=== PATIENT | male | born 1960 | race Caucasian/White ===

== ENCOUNTER 2019-10-17 19:56 | Emergency (ER) | payer MEDICARE, OTHER, SELFPAY ==
[2019-10-17] VITALS (9 sets, daily range): BP systolic 140–165; BP diastolic 96–129; PULSE 94–133; RESP 18–33; TEMP 36.6–39.1; O2SAT 93–98; BMI 31.1
--- NOTE | 2019-10-17 20:15 | XRR_ITS ---
PROCEDURE INFORMATION: Exam: XR Chest, 1 View Exam date and time: 10/17/2019 8:27 PM Age: 59 years old Clinical indication: Dyspnea; Additional info: SOB TECHNIQUE: Imaging protocol: XR of the chest Views: 1 view. COMPARISON: CR Chest 1 [place] [id number] 06/09/2018 3:06 PM FINDINGS: Lungs: Airspace opacity in the perihilar and basilar left lung. The right lung is clear. Pleural space: Unremarkable. No pleural effusion. No pneumothorax. Heart/Mediastinum: Unremarkable. No cardiomegaly. Bones/joints: Sternotomy changes with multiple fractured wires. XR/XR chest 1V portable [id number] IMPRESSION: Pneumonia versus aspiration in the left lung.
--- NOTE | 2019-10-17 20:16 | ECG_ITS ---
[facility] Test Date: 2019-10-17 Pat Name: Mehdi Goodwin Department: Room: Gender: Male Coldfusion: : 1960 Requested By: Tom Hill Order Number: [id number] Elle MD: Fe Barry M.D. Measurements Intervals [place] Rate: 125 P: 77 AK: 140 QRS: 32 QRSD: 114 T: 48 QT: 314 QTc: 453 Interpretive Statements SINUS TACHYCARDIA INCOMPLETE RIGHT BUNDLE BRANCH BLOCK INFERIOR MYOCARDIAL INFARCTION , OF INDETERMINATE AGE Compared to ECG 06/09/2018 17:37:46 Sinus rhythm no longer present Myocardial infarct finding still present Electronically Signed On 10-17-2019 20:26:04 CDT by Fe Barry M.D. [id number]
--- NOTE | 2019-10-17 20:20 | ED_ITS ---
HPI - SOB/Dyspnea General: Chief Complaint: Shortness of Breath/Dyspnea Stated Complaint: SOB Time Seen by Provider: 10/17/19 20:04 History of Present Illness: HPI Narrative: 59-year-old male gentleman who was evaluated yesterday at [facility]. He was tested for COVID, and was negative there. He has been experiencing symptoms for 6 days. He has had fever, cough, shortness of breath, and left-sided chest/flank pain. He states his urine is a dark color as well. He is not been vomiting. MD elicited complaint: shortness of breath, cough and chest pain Pertinent past history: COPD Onset (ago): day(s) Context: recent illness Timing: constant Severity: moderate Exacerbating factors: exertion Relieving factors: oxygen Associated symptoms: Reports chest pain, dizziness and fever(s); Deny abdominal pain, nausea, palpitations or vomiting Review of Systems Const: Reports: fever(s) and chills Eyes: Denies: change in vision ENMT: Denies: swelling of lips/tongue, epistaxis or sinus pain Card: Reports: chest pain; Denies: palpitations, irregular heart rhythm or edema Resp: Reports: dyspnea, non-productive cough and wheezing; Denies: productive cough GI: Denies: abdominal pain, nausea or vomiting : Denies: difficulty urinating or hematuria Musc: Denies: back pain or joint warmth Skin/Breast: Denies: rash, pruritus or erythema Neuro: Reports: dizziness; Denies: headache(s), vertigo or confusion Psych: Denies: anxiety PFSH ED PFSH: Medical History (Updated 10/17/19 @ 22:37 by Tom Hurtado DO) COPD (chronic obstructive pulmonary disease) Coronary artery disease Hyperlipidemia Hypertension Surgical History (Updated 10/17/19 @ 21:17 by Mina Benavidez MD) 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 Family History (Updated 10/17/19 @ 21:17 by Mina Benavidez MD) Other CAD (coronary artery disease) Social History (Updated 10/17/19 @ 21:18 by Mina Benavidez MD) Smoking and tobacco status: current every day smoker cigarettes [ Other cigarette details: 1 pack/day ] Alcohol intake: never Lives independently: Yes Housing: House Physical Exam Const: GENERAL APPEARANCE: well developed, in distress and ill appearing ORIENTATION/CONSCIOUSNESS: Yes oriented to person, Yes oriented to place and Yes oriented to time HENMT: COMMON NORMALS: normocephalic, external ears normal and Normal external nose present HEAD & SCALP: normocephalic FACE & SINUS: normal facial exam NOSE: Normal external nose present and No nasal discharge present EXTERNAL EAR: Yes external ears normal Eye: COMMON NORMALS: Equal, round and reactive pupils present, EOMs intact bilaterally and conjunctivae normal EYELID: eyelids normal CONJUNCTIVA: Yes conjunctivae normal PUPIL: Yes Equal, round and reactive pupils present Neck/C-Spine: GENERAL: No tracheal deviation Chest: COMMONS NORMALS: normal inspection of the chest CHEST: No tenderness Resp: EFFORT & INSPECTION: Yes tachypneic, Yes respiratory distress, No retractions, Yes uses accessory muscles and No tracheal deviation AUSCULTATION: no rhonchi, no wheezes and diminished lung sounds Cardio: COMMON NORMALS: regular rhythm RATE: tachycardic RHYTHM: regular rhythm HEART SOUNDS: no murmurs PERIPHERAL PULSES: radial pulses present GI: INSPECTION: No abdominal distension AUSCULTATION: No Hyperactive bowel sounds present and No Hypoactive bowel sounds present PALPATION: No Guarding due to palpation present (GI) and No Rigid due to palpation PERCUSSION: no dullness to percussion and no tympanic to percussion Neuro: SENSORIUM/ORIENTATION: Yes oriented to person, Yes oriented to place and Yes oriented to time Psych: COMMON NORMALS: mental status grossly normal Skin: COMMON NORMALS: no rashes or lesions noted GENERAL SKIN EXAM: no rashes or lesions noted Course Vital Signs: Vital signs: Vital Signs Temperature 97.8 F 10/17/19 23:14 Pulse Rate 97 10/17/19 23:14 Respiratory Rate 19 H 10/17/19 23:14 Blood Pressure 155/106 10/17/19 23:14 Pulse Oximetry 94 10/17/19 23:14 MDM - SOB/Dyspnea MDM Narrative: Medical decision making narrative: 59-year-old male presenting with cough and shortness of breath along with some pleuritic type left-sided chest pain/flank pain. His white blood cell count is 28.4. His hemoglobin is 13. BUN slightly elevated. Chest x-ray shows a left-sided infiltrate that is significant. He was given IV fluid, 2 L, as well as 750 mg of Levaquin here in the ER. He was placed on BiPAP on arrival, with dramatic improvement in his respiratory status. Currently he is back on 3 L nasal cannula satting 93%. His heart rate is 100. His blood pressure is 140/100. We had contacted the hospitalist, and written admission orders on this patient, pending a rapid COVID antigen. He had one yesterday that was negative. When discussing admission with the patient, he states that he needs to leave and be discharged, because he is taking care of his grandchildren at home. 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 The risks of him leaving at this point given the acuity and severity of his illness were discussed with him, including a distinct possibility of . He chooses to leave AGAINST MEDICAL ADVICE. He is awake, alert, oriented x4, and capable of making his decision. Nevertheless he will be treated for pneumonia. Lab Data: Labs: Lab Results 10/17/19 10/17/19 10/17/19 Range/Units 20:29 20:29 20:29 WBC 28.4 H (4.0-10.0) 10^3/ uL RBC 4.36 (4.1-5.3) 10^6/u L Hgb 13.4 (11.7-16.6) g/dL Hct 41.8 L (42.0-52.0) % MCV 95.9 H (80-94) fL MCH 30.7 (28.0-34.0) pg MCHC 32.1 (30.0-36.0) g/dL RDW 14.0 (12.1-15.1) % Plt Count 383 (130-400) 10^3/c mm MPV 10.9 H (7.4-10.4) fL Lymph % (Auto) Not Reportable [place] % (Auto) Not Reportable Lymph # (Auto) Not Reportable [place] # (Auto) Not Reportable Total Counted 100 (0-100) Absolute Neutrophi ls 26.7 H (1.4-6.5) 10^3/c mm Segmented Neutroph ils 54 % Abs Segm Neuts (Ma n) 15.3 H (1.6-7.1) 10/cmm Band Neutrophils 40.0 % Abs Band Neuts (Ma n) 11.4 H (0.0-1.2) 10^3/c mm Lymphocytes (Manua l) 1 % Monocytes (Manual) 4.0 % Absolute Monocytes 1.1 H (0.1-0.6) 10^3/c mm Metamyelocytes 1.0 % Platelet Estimate Increased (Normal) Polychromasia 1+ H Poikilocytosis 1+ H D-Dimer 2.11 H (0-0.59) ug/mIFE U Specimen Type Sample Site ABG pH (7.35-7.45) ABG pCO2 (35-45) mmHg ABG pO2 (80.0-100.0) mmH g ABG HCO3 (22-26) mmol/L ABG Base Excess (-2.0-2.0) mmol/ L Emanuel Test Hematocrit (42-52) % Hgb O2 Saturation (95-100) % Carboxyhemoglobin (0.4-20.1) %THgb Methemoglobin (0.4-1.5) % Total Hemoglobin (14-18) g/dL O2 Delivery Device FiO2 % Grooving Machine Operator ID Sodium 130 L (136-145) mmol/L Potassium 4.7 (3.5-5.1) mmol/L Chloride 90 L (98-107) mmol/L Carbon Dioxide 25 (22-29) mmol/L Anion Gap 19.7 H (5-19) BUN 24 H (6-20) mg/dL Creatinine 1.1 (0.7-1.2) mg/dL GFR Calculation 69.0 L (90-130) mL/min Glucose 109 (65-115) mg/dL Calculated Osmolal ity 267 L (285-295) mOsm/k g Lactic Acid (0.5-2.2) mmol/L Calcium 9.4 (8.5-10.5) mg/dL Total Bilirubin 0.5 (0.15-1.2) mg/dL AST 22 (0-40) U/L ALT 33 (0-41) U/L Alkaline Phosphata se 92 (40-130) IU/L Troponin T Baselin e (0-15) ng/L Troponin T 120 Min hughes (0-15) ng/L Delta Troponin T (0-10) ABS# NT-Pro-B Natriuret Pep 558 H (0-125) pg/mL Total Protein 6.4 L (6.6-8.7) g/dL Albumin 3.4 L (3.5-5.2) g/dL Globulin 3.0 (1.3-4.6) g/dL SARS-CoV-2 Ag (Rap id) (Negative) 10/17/19 10/17/19 10/17/19 Range/Units 20:29 20:30 20:53 WBC (4.0-10.0) 10^3/ uL RBC (4.1-5.3) 10^6/u L Hgb (11.7-16.6) g/dL Hct (42.0-52.0) % MCV (80-94) fL MCH (28.0-34.0) pg MCHC (30.0-36.0) g/dL RDW (12.1-15.1) % Plt Count (130-400) 10^3/c mm MPV (7.4-10.4) fL Lymph % (Auto) [place] % (Auto) Lymph # (Auto) [place] # (Auto) Total Counted (0-100) Absolute Neutrophi ls (1.4-6.5) 10^3/c mm Segmented Neutroph ils % Abs Segm Neuts (Ma n) (1.6-7.1) 10/cmm Band Neutrophils % Abs Band Neuts (Ma n) (0.0-1.2) 10^3/c mm Lymphocytes (Manua l) % Monocytes (Manual) % Absolute Monocytes (0.1-0.6) 10^3/c mm Metamyelocytes % Platelet Estimate (Normal) Polychromasia Poikilocytosis D-Dimer (0-0.59) ug/mIFE U Specimen Type Arterial Sample Site Brachial, right ABG pH 7.47 H (7.35-7.45) ABG pCO2 30.7 L (35-45) mmHg ABG pO2 128.0 H (80.0-100.0) mmH g ABG HCO3 22.4 (22-26) mmol/L ABG Base Excess -0.3 (-2.0-2.0) mmol/ L Emanuel Test N/a Hematocrit 42.4 (42-52) % Hgb O2 Saturation 97.4 (95-100) % Carboxyhemoglobin < 0.0 L (0.4-20.1) %THgb Methemoglobin 0.3 L (0.4-1.5) % Total Hemoglobin 13.8 L (14-18) g/dL O2 Delivery Device Bipap FiO2 55.0 % Grooving Machine Operator ID Harkr Sodium (136-145) mmol/L Potassium (3.5-5.1) mmol/L Chloride (98-107) mmol/L Carbon Dioxide (22-29) mmol/L Anion Gap (5-19) BUN (6-20) mg/dL Creatinine (0.7-1.2) mg/dL GFR Calculation (90-130) mL/min Glucose (65-115) mg/dL Calculated Osmolal ity (285-295) mOsm/k g Lactic Acid 1.8 (0.5-2.2) mmol/L Calcium (8.5-10.5) mg/dL Total Bilirubin (0.15-1.2) mg/dL AST (0-40) U/L ALT (0-41) U/L Alkaline Phosphata se (40-130) IU/L Troponin T Baselin e 16 H (0-15) ng/L Troponin T 120 Min hughes (0-15) ng/L Delta Troponin T (0-10) ABS# NT-Pro-B Natriuret Pep (0-125) pg/mL Total Protein (6.6-8.7) g/dL Albumin (3.5-5.2) g/dL Globulin (1.3-4.6) g/dL SARS-CoV-2 Ag (Rap id) (Negative) 10/17/19 10/17/19 Range/Units 22:02 22:33 WBC (4.0-10.0) 10^3/ uL RBC (4.1-5.3) 10^6/u L Hgb (11.7-16.6) g/dL Hct (42.0-52.0) % MCV (80-94) fL MCH (28.0-34.0) pg MCHC (30.0-36.0) g/dL RDW (12.1-15.1) % Plt Count (130-400) 10^3/c mm MPV (7.4-10.4) fL Lymph % (Auto) [place] % (Auto) Lymph # (Auto) [place] # (Auto) Total Counted (0-100) Absolute Neutrophi ls (1.4-6.5) 10^3/c mm Segmented Neutroph ils % Abs Segm Neuts (Ma n) (1.6-7.1) 10/cmm Band Neutrophils % Abs Band Neuts (Ma n) (0.0-1.2) 10^3/c mm Lymphocytes (Manua l) % Monocytes (Manual) % Absolute Monocytes (0.1-0.6) 10^3/c mm Metamyelocytes % Platelet Estimate (Normal) Polychromasia Poikilocytosis D-Dimer (0-0.59) ug/mIFE U Specimen Type Sample Site ABG pH (7.35-7.45) ABG pCO2 (35-45) mmHg ABG pO2 (80.0-100.0) mmH g ABG HCO3 (22-26) mmol/L ABG Base Excess (-2.0-2.0) mmol/ L Emanuel Test Hematocrit (42-52) % Hgb O2 Saturation (95-100) % Carboxyhemoglobin (0.4-20.1) %THgb Methemoglobin (0.4-1.5) % Total Hemoglobin (14-18) g/dL O2 Delivery Device FiO2 % Grooving Machine Operator ID Sodium (136-145) mmol/L Potassium (3.5-5.1) mmol/L Chloride (98-107) mmol/L Carbon Dioxide (22-29) mmol/L Anion Gap (5-19) BUN (6-20) mg/dL Creatinine (0.7-1.2) mg/dL GFR Calculation (90-130) mL/min Glucose (65-115) mg/dL Calculated Osmolal ity (285-295) mOsm/k g Lactic Acid (0.5-2.2) mmol/L Calcium (8.5-10.5) mg/dL Total Bilirubin (0.15-1.2) mg/dL AST (0-40) U/L ALT (0-41) U/L Alkaline Phosphata se (40-130) IU/L Troponin T Baselin e (0-15) ng/L Troponin T 120 Min [place]hes 18.38 H (0-15) ng/L Delta Troponin T 2.38 (0-10) ABS# NT-Pro-B Natriuret Pep (0-125) pg/mL Total Protein (6.6-8.7) g/dL Albumin (3.5-5.2) g/dL Globulin (1.3-4.6) g/dL SARS-CoV-2 Ag (Rap id) Negative (Negative) Discharge Plan Discharge Patient Disposition: Left Against Medical Advice Clinical Impression: Community acquired pneumonia Qualifiers: Laterality: left Lung location: upper lobe of lung Qualified Code(s): J18.9 - Pneumonia, unspecified organism Condition: Stable Prescriptions: New Levaquin 750 mg tablet 750 mg PO DAILY 7 Days Qty: 7 RF: 0 No Action albuterol sulfate 2.5 mg /3 mL (0.083 %) solution for nebulization 2.5 mg inhalation Q6H PRN (Reason: UNKNOWN) RF: 0 clopidogrel 75 mg tablet 75 mg PO DAILY RF: 0 Aspir-81 81 mg Tablet,Delayed Release (Dr/Ec) 81 mg PO DAILY RF: 0 amlodipine 10 mg tablet 10 mg PO DAILY RF: 0 prednisone 50 mg tablet 50 mg PO BID RF: 0 albuterol sulfate 90 mcg/actuation HFA aerosol inhaler 1 - 2 puff INHALATION Q4H PRN (Reason: Shortness Of Breath) RF: 0 losartan 100 mg tablet 100 mg PO DAILY RF: 0 duloxetine 60 mg capsule,delayed release(DR/EC) 60 mg PO DAILY RF: 0 Trelegy Ellipta 100-62.5-25 mcg blister with device 1 ea INHALATION DAILY RF: 0 Referrals: Hung Carmichael MD [Primary Care Provider] - Discharge Diet: Advance as tolerated Discharge Activity: Limit activity as instructed Patient Instructions: Pneumonia (ED) Activity Restrictions/Additional Instructions: Return immediately to the emergency department for any worsening shortness of breath, or other concerning symptoms. Antibiotics as directed. Discharge Date/Time: 10/17/19 23:24 Coding Level of Care Code ED Business Continuity Management Director for Lauren Fwd Exam Comprehensive
[2019-10-17] MEDS: fentaNYL 50 mcg/mL INJ 2mL 100 MCG IVP (20:36)
[2019-10-17 20:37] LABS: Hematocrit 41.8 % (42.0-52.0); Hemoglobin 13.4 g/dL (11.7-16.6); Mean Corpuscular HGB Conc 32.1 g/dL (30.0-36.0); Mean Corpuscular Hemoglobin 30.7 pg (28.0-34.0); Mean Corpuscular Volume 95.9 fL (80-94); Mean Platelet Volume 10.9 fL (7.4-10.4); Platelet Count 383 10^3/cmm (130-400); Red Blood Count 4.36 10^6/uL (4.1-5.3); White Blood Count 28.4 10^3/uL (4.0-10.0)
[2019-10-17] MEDS: dexamethasone 10 mg/mL INJ IVP (20:41)
[2019-10-17] MEDS: metoprolol tartrate 1 mg/1 mL SDV 5 mL 5 MG IV (20:42)
[2019-10-17 20:52] LABS: ABG PCO2 30.7 mmHg (35-45); ABG PH Result 7.47 (7.35-7.45); Arterial Blood Gas Hematocrit 42.4 % (42-52); Base Excess ABG -0.3 mmol/L (-2.0-2.0); Blood Gas Operator Identificat HARKR; Blood Gas Sample Site Brachial, right; Blood Gas Sample Type Arterial; Carboxyhemoglobin < 0.0 %THgb (0.4-20.1); HCO3 ABG 22.4 mmol/L (22-26); HGB O2 Sat 97.4 % (95-100); Methemoglobin 0.3 % (0.4-1.5); Oxygen Device BIPAP; Total Hemoglobin 13.8 g/dL (14-18)
[2019-10-17 20:52] LABS: D Dimer 2.11 ug/mIFEU (0-0.59)
[2019-10-17 20:59] LABS: Troponin(5th) Baseline 16 ng/L (0-15)
--- NOTE | 2019-10-17 21:01 | PC.NURSE ---
Patient sitting up with legs on either side of bed. Patient is on the Bipap and states he feels a little better.
[2019-10-17 21:06] LABS: Alanine Aminotransferase 33 U/L (0-41); Albumin Level 3.4 g/dL (3.5-5.2); Alkaline Phosphatase 92 IU/L (40-130); Anion Gap 19.7 (5-19); Aspartate Amino Transferase 22 U/L (0-40); Blood Urea Nitrogen 24 mg/dL (6-20); Calcium 9.4 mg/dL (8.5-10.5); Carbon Dioxide 25 mmol/L (22-29); Chloride 90 mmol/L (98-107); Glucose 109 mg/dL (65-115); NT Pro B Type Natriuretic Pept 558 pg/mL (0-125); Osmolality Calculated 267 mOsm/kg (285-295); Potassium 4.7 mmol/L (3.5-5.1); Sodium 130 mmol/L (136-145); Total Bilirubin 0.5 mg/dL (0.15-1.2); Total Protein 6.4 g/dL (6.6-8.7)
[2019-10-17] MEDS: levofloxacin-dextrose 5 % 750 MG/150 ML PREMIX 100 MG IV (21:07)
--- NOTE | 2019-10-17 21:16 | PM.HP ---
Providers/Chief Complaint Primary Care Provider: Hung Carmichael MD Chief Complaint: SOB History of Present Illness Mehdi Goodwin is a 59 year old male Medications/Allergies Home Medications Medication Instructions Recorded Confirmed Last Taken Type albuterol sulfate 1 - 2 puff INHALATION Q4H PRN 10/17/19 10/17/19 Unknown History albuterol sulfate 2.5 mg INHALATION Q6H PRN 10/17/19 10/17/19 10/17/19 History amlodipine 10 mg PO DAILY 10/17/19 10/17/19 10/16/19 History aspirin [Aspir-81] 81 mg PO DAILY 10/17/19 10/17/19 10/17/19 History clopidogrel 75 mg PO DAILY 10/17/19 10/17/19 10/17/19 History duloxetine 60 mg PO DAILY 10/17/19 10/17/19 10/16/19 History ntcxntomcys-nptxvkdla-batxtrdz 1 ea INHALATION DAILY 10/17/19 10/17/19 10/17/19 History [Trelegy Ellipta] losartan 100 mg PO DAILY 10/17/19 10/17/19 10/17/19 History prednisone 50 mg PO BID 10/17/19 10/17/19 10/17/19 08:00 History Allergies Allergy/AdvReac Type Severity Reaction Status Date / Time Penicillins Allergy ALGY-Anaphy Verified 10/17/19 20:33 laxis PFSH Acute PFSH: Medical History (Updated 10/17/19 @ 21:17 by Mina Benavidez MD) COPD (chronic obstructive pulmonary disease) Coronary artery disease Hyperlipidemia Hypertension Surgical History (Updated 10/17/19 @ 21:17 by Mina Benavidez MD) 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 Family History (Updated 10/17/19 @ 21:17 by Mina Benavidez MD) Other CAD (coronary artery disease) Social History (Updated 10/17/19 @ 21:18 by Mina Benavidez MD) Smoking and tobacco status: current every day smoker cigarettes [ Other cigarette details: 1 pack/day ] Alcohol intake: never Substance/Drug Use: never Lives independently: Yes Housing: House Vitals/I&O/Wt Last Vital Signs Temp 102.4 F H 08/28/20 19:59 Pulse 102 H 10/17/19 20:51 Resp 32 H 10/17/19 20:51 BP 142/109 10/17/19 20:51 Pulse Ox 97 10/17/19 20:51 Weight last 48 hrs Weight 104.326 kg Data : 10/17/19 20:29 10/17/19 20:29 Coding Level of Care Code Acute Conductor Pullman for Lauren Jaramillo
[2019-10-17 21:22] LABS: Lactic Sepsis W/Reflex 1.8 mmol/L (0.5-2.2)
[2019-10-17 22:12] LABS: Slide Review Slide Review Perform
--- NOTE | 2019-10-17 22:16 | ECG_ITS ---
[facility] Test Date: 2019-10-17 Pat Name: Mehdi Goodwin Department: Room: Gender: Male Packaging Operator: : 1960 Requested By: Tom Hill Order Number: [id number] Elle MD: Kelli Gregorio M.D. Measurements Intervals [place] Rate: 96 P: 39 CO: 135 QRS: 17 QRSD: 118 T: 50 QT: 371 QTc: 470 Interpretive Statements SINUS RHYTHM WITH OCCASIONAL SUPRAVENTRICULAR PREMATURE COMPLEXES INCOMPLETE RIGHT BUNDLE BRANCH BLOCK [90+ ms QRS DURATION, TERMINAL R IN V1/V2, 40+ ms S IN I/aVL/V4/V5/V6] INFERIOR MYOCARDIAL INFARCTION , PROBABLY OLD [40+ ms Q WAVE AND/OR ST/T ABNORMALITY IN II/aVF] ANTEROLATERAL MYOCARDIAL INFARCTION , OF INDETERMINATE AGE [40+ ms Q WAVE IN I/aVL/V3-V6] Compared to ECG 10/17/2019 20:23:26 Sinus tachycardia no longer present Myocardial infarct finding still present Electronically Signed On 10-18-2019 20:56:42 CDT by Kelli Gregorio M.D. [id number]
[2019-10-17 22:17] LABS: Absolute Segmented Neutrophil 15.3 10/cmm (1.6-7.1); Band Neutrophils Absolute 11.4 10^3/cmm (0.0-1.2); Lymphocytes 1 %; Monocytes Absolute 1.1 10^3/cmm (0.1-0.6); Segmented Neutrophils 54 %; Total Cells Counted 100 (0-100)
[2019-10-17 22:18] LABS: Absolute Neutrophil 26.7 10^3/cmm (1.4-6.5); Platelet Estimate Increased (Normal); Poikilocytosis 1+; Polychromasia 1+
--- NOTE | 2019-10-17 22:53 | PC.NURSE ---
Patient given the rest of the liter of fluids from EMS.
[2019-10-17 23:09] LABS: SARS Covid-2 Antigen Negative (Negative)
[2019-10-17 23:37] LABS: Troponin 5 2HR 18.38 ng/L (0-15); Troponin 5 2HR Delta 2.38 ABS# (0-10)
== END 2019-10-17 23:24 | disposition left against medical advice (07) ==
PROVIDERS: Emergency Provider Emergency Medicine; PCP Family Medicine
DX: J18.9 Pneumonia, unspecified organism (principal); Z53.21 Procedure and treatment not carried out due to patient leaving prior to being seen by health care provider; Z79.02 Long term (current) use of antithrombotics/antiplatelets; Z79.82 Long term (current) use of aspirin; J44.9 Chronic obstructive pulmonary disease, unspecified; I25.10 Atherosclerotic heart disease of native coronary artery without angina pectoris; E78.5 Hyperlipidemia, unspecified; I10 Essential (primary) hypertension; Z95.1 Presence of aortocoronary bypass graft; F17.210 Nicotine dependence, cigarettes, uncomplicated
CPT/HCPCS: 12345; 36600; 71045; 80053; 82805; 83605; 83880; 84484; 85007; 85025; 85378; 87426; 93005; 94660; 96365; 96375; 99283; 99284; J1100; J1956; J3010; J3490

== ENCOUNTER 2019-10-21 11:19 | Inpatient (IN) | payer MEDICARE, SELFPAY ==
[2019-10-21] VITALS (9 sets, daily range): BP systolic 133–153; BP diastolic 86–101; PULSE 84–100; RESP 18–22; TEMP 36.5–37.2; O2SAT 93–98; BMI 31.3
--- NOTE | 2019-10-21 11:41 | ECG_ITS ---
[facility] Test Date: 2019-10-21 Pat Name: Mehdi Goodwin Department: Room: Gender: Male Poker Supervisor: : 1960 Requested By: Nivia Vicente Order Number: [id number] Almeida MD: Fe Barry M.D. Measurements Intervals [place] Rate: 109 P: 72 DE: 157 QRS: 25 QRSD: 120 T: 50 QT: 351 QTc: 473 Interpretive Statements SINUS TACHYCARDIA WITH OCCASIONAL SUPRAVENTRICULAR PREMATURE COMPLEXES POSSIBLE LEFT ATRIAL ENLARGEMENT POSSIBLE RIGHT VENTRICULAR CONDUCTION DELAY INFERIOR MYOCARDIAL INFARCTION , PROBABLY OLD Compared to ECG 10/17/2019 22:42:31 Sinus rhythm no longer present Incomplete right bundle-branch block no longer present Myocardial infarct finding still present Electronically Signed On 10-21-2019 20:41:50 CDT by Fe Barry M.D. [id number]
--- NOTE | 2019-10-21 11:41 | XRR_ITS ---
PROCEDURE INFORMATION: Exam: XR Chest, 1 View Exam date and time: 10/21/2019 11:51 AM Age: 59 years old Clinical indication: Dyspnea; Prior surgery; Surgery type: Open heart TECHNIQUE: Imaging protocol: XR of the chest Views: 1 view. COMPARISON: CR XR chest 1V portable [id number] 10/17/2019 8:18 PM FINDINGS: Lungs: Emphysematous change, interstitial prominence, chronic granulomatous disease. Asymmetric left-sided airspace disease, consistent with infiltrate in the appropriate clinical setting. Pleural space: Small left pleural effusion. Heart/Mediastinum: Epicardial fat without cardiomegaly. Bones/joints: Median sternotomy. Degenerative change. XR/XR chest 1V portable [id number] IMPRESSION: 1. Emphysematous change, interstitial prominence, chronic granulomatous disease. 2. Asymmetric left-sided airspace disease, consistent with infiltrate in the appropriate clinical setting.
--- NOTE | 2019-10-21 11:53 | ED_ITS ---
HPI - SOB/Dyspnea General: Chief Complaint: Shortness of Breath/Dyspnea Stated Complaint: SOB-sent by PCP Time Seen by Provider: 10/21/19 11:33 Source: patient Mode of arrival: ambulatory Limitations: no limitations History of Present Illness: HPI Narrative: Mehdi is a nice 59-year-old male who comes in with a complaint of shortness of breath and generalized weakness. Patient states he was sent here by his primary care physician after recheck. Of note the patient was here in the hospital in the ER, seen by Dr. Hurtado and at that time Dr. Hurtado wanted to admit him for pneumonia hypoxia but the patient could not secondary to family obligations. Since going home his symptoms have become worse and after being rechecked in Dr. Carmichael office he was sent here for admission, steroids and oxygen. Patient states he is taking the Levaquin that was prescribed him but his symptoms are no better with continued shortness of breath now he has nausea but has not vomited. He denies any chest pain but does have shortness of breath. He is unaware if he has had any fevers. He denies any leg pain or swelling. He becomes profoundly more short of breath if he exerts himself. Associated symptoms: Reports chest congestion, diaphoresis and fever(s); Deny abdominal pain, dizziness, extremity pain, hemoptysis, lightheadedness, nausea, orthopnea, palpitations, syncope or vomiting Review of Systems Const: Reports: fever(s), chills, body aches, fatigue, malaise and diaphoresis Eyes: Denies: change in vision, blurry vision, photophobia, eye discomfort, eye discharge or eye redness ENMT: Denies: throat pain, odynophagia, hoarseness, swelling of lips/tongue, ear or mastoid pain, ear discharge, change in hearing or nasal discharge Card: Denies: palpitations, irregular heart rhythm, edema, lightheadedness, syncope, pre-syncope, dyspnea on exertion or orthopnea Resp: Reports: dyspnea, non-productive cough, wheezing, pain on inspiration and chest congestion; Denies: productive cough or hemoptysis GI: Denies: abdominal pain, nausea, vomiting, hematemesis, coffee ground emesis, heartburn, diarrhea, constipation, GI cramping, hematochezia or melena : Denies: flank pain, dysuria, urinary frequency, urinary urgency or hematuria Musc: Denies: neck pain, back pain, extremity pain, extremity swelling, joint pain, joint swelling, joint redness, joint warmth or joint stiffness Skin/Breast: Denies: rash, pruritus, erythema or skin tenderness Neuro: Denies: headache(s), numbness in extremities, weakness in extremities, sensory changes, lack of coordination, difficulty walking, dizziness, vertigo, confusion, Slurred speech present or seizure-like activity Lloyd/Lymph: Denies: easy bruising, easy bleeding, petechiae, purpura or enlarged lymph nodes All/Imm: Denies: urticaria, throat swelling, tongue swelling, facial swelling or acute wheezing PFSH ED PFSH: Medical History COPD (chronic obstructive pulmonary disease) Coronary artery disease Hyperlipidemia Hypertension Surgical History 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 Family History Other CAD (coronary artery disease) Social History Smoking and tobacco status: current every day smoker cigarettes [ Other cigarette details: 1 pack/day ] Alcohol intake: never Substance/Drug Use: never Lives independently: Yes Housing: House Physical Exam Const: COMMON NORMALS: no acute distress, patient oriented x3, no limitations, healthy appearing and well nourished GENERAL APPEARANCE: cooperative, well kempt and well developed HENMT: COMMON NORMALS: normocephalic, atraumatic, external ears normal, EAC's normal and Normal external nose present HEAD & SCALP: normal to inspection, normocephalic and atraumatic FACE & SINUS: normal facial exam and face symmetric NOSE: Normal external nose present and Normal nares present EXTERNAL EAR: Yes external ears normal EXTERNAL AUDITORY CANAL: EAC's normal MOUTH: Normal oral and palatal mucosa present, lip normal and tongue normal Eye: COMMON NORMALS: Equal, round and reactive pupils present and conjunctivae normal GENERAL EYE: appearance normal, both eyes and all related structures ALIGNMENT: Yes alignment normal PERIORBITAL: periorbital findings normal EYELID: eyelids normal CONJUNCTIVA: Yes conjunctivae normal SCLERA: sclerae normal PUPIL: Yes Equal, round and reactive pupils present Neck/C-Spine: COMMON NORMALS: full ROM, no lymphadenopathy, supple, no meningeal signs and no JVD GENERAL: Yes normal visual inspection and Yes trachea midline Chest: COMMONS NORMALS: normal inspection of the chest and normal palpation of entire chest wall Resp: COMMON NORMALS: normal respiratory effort, No retractions, No use of accessory muscles and clear to auscultation bilaterally EFFORT & INSPECTION: Yes able to speak in complete sentences and Yes symmetric chest movement AUSCULTATION: clear to auscultation bilaterally, no crackles, no rales, rhonchi, wheezes and diminished lung sounds on the left in the lower lung spain Cardio: COMMON NORMALS: no JVD, regular rate, regular rhythm, S1 normal heart sound present and S2 normal heart sound present RATE: regular rate RHYTHM: regular rhythm HEART SOUNDS: S1 normal heart sound present, S2 normal heart sound present, no click, no gallops, no murmurs, no rubs and abnormal split S2 GI: COMMON NORMALS: Soft to palpation and No hepatosplenomegaly present PALPATION: Yes Soft to palpation, No Tenderness to palpation present (GI), No Guarding due to palpation present (GI), No Rigid due to palpation, Yes No hepatosplenomegaly present, No Hernia present, No Palpable mass present and No Pulsatile mass present : COMMON NORMALS: Yes no CVA tenderness BLADDER/KIDNEY EXAM: Yes no CVA tenderness Back/Pelvis: COMMON NORMALS: no CVA tenderness, thoracic and lumbar spine normal to inspection, no thoracic nor lumbar tenderness and thoraco-lumbar ROM normal Extremity: COMMON NORMALS: normal to inspection, full ROM, capillary refill normal, no joint enlargement, no clubbing, cyanosis or edema and no calf tenderness Neuro: COMMON NORMALS: patient oriented x3, CN's II-XII intact bilaterally, moves all extremities, no focal motor deficits and no sensory deficits noted MENINGEAL SIGNS: Yes no meningeal signs SPEECH: speech normal Psych: COMMON NORMALS: mental status grossly normal, Normal thought process present, cooperative, normal affect, speech normal and activity/motor behavior normal APPEARANCE: Yes well kempt SPEECH: Yes normal speech THOUGHT PROCESS: Normal thought process present Skin: COMMON NORMALS: no rashes or lesions noted, turgor normal, no jaundice, no petechiae and no mottling GENERAL SKIN EXAM: no rashes or lesions noted and turgor normal Course Vital Signs: Vital signs: Vital Signs Temperature 98.0 F 10/21/19 11:25 Pulse Rate 88 10/21/19 14:28 Respiratory Rate 20 H 10/21/19 14:28 Blood Pressure 133/86 10/21/19 11:25 Pulse Oximetry 98 10/21/19 14:28 MDM - SOB/Dyspnea MDM Narrative: Medical decision making narrative: Mr. Goodwin is a very nice 59-year-old male who comes in with 10 days or more of increasing shortness of breath, subjective fevers and chills. Please see Dr. Hurtado's note for previous but the patient left AGAINST MEDICAL ADVICE. Patient now comes back understanding he does need to be in the hospital. He states that he is feeling better after therapies we have given him here. CT scan shows no PE but is suspicious for wedge-shaped infarct in his right lung base. Nonetheless we will go ahead and treat the patient for pneumonia. The case was reviewed in full with Dr. Valdezui she agrees to admit for further evaluation and care. Lab Data: Labs: Lab Results 10/21/19 10/21/19 10/21/19 Range/Units 11:45 11:45 11:45 WBC 30.6 H* (4.0-10.0) 10^3/ uL RBC 4.29 (4.1-5.3) 10^6/u L Hgb 13.2 (11.7-16.6) g/dL Hct 41.8 L (42.0-52.0) % MCV 97.4 H (80-94) fL MCH 30.8 (28.0-34.0) pg MCHC 31.6 (30.0-36.0) g/dL RDW 14.5 (12.1-15.1) % Plt Count 827 H (130-400) 10^3/c mm MPV 9.5 (7.4-10.4) fL Lymph % (Auto) Not Reportable [place] % (Auto) Not Reportable Lymph # (Auto) Not Reportable [place] # (Auto) Not Reportable Total Counted 100 (0-100) Segmented Neutroph ils 87 % Abs Segm Neuts (Ma n) 26.6 H (1.6-7.1) 10/cmm Lymphocytes (Manua l) 6 % Monocytes (Manual) 4.0 % Absolute Monocytes 1.2 H (0.1-0.6) 10^3/c mm Eosinophils (Manua l) 1 % Absolute Eosinophi ls 0.3 (0.0-0.7) 10^3/c mm Metamyelocytes 2.0 % Platelet Estimate Increased (Normal) Anisocytosis 1+ H PT 14.80 (12.1-14.9) SECO NDS INR 1.12 (0.8-1.2) D-Dimer 2.84 H (0-0.59) ug/mIFE U Specimen Type Sample Site ABG pH (7.35-7.45) ABG pCO2 (35-45) mmHg ABG pO2 (80.0-100.0) mmH g ABG HCO3 (22-26) mmol/L ABG O2 Saturation ABG Base Excess (-2.0-2.0) mmol/ L Emanuel Test A-a O2 Gradient (5-10) mmHg Hematocrit (42-52) % Hgb O2 Saturation (95-100) % Carboxyhemoglobin (0.4-20.1) %THgb Methemoglobin (0.4-1.5) % Total Hemoglobin (14-18) g/dL Ionized Calcium (1.1-1.4) mmol/L O2 Delivery Device FiO2 % Security Compliance Specialist ID Sodium 134 L (136-145) mmol/L Potassium 4.1 (3.5-5.1) mmol/L Chloride 100 (98-107) mmol/L Carbon Dioxide 24 (22-29) mmol/L Anion Gap 14.1 (5-19) BUN 22 H (6-20) mg/dL Creatinine 1.1 (0.7-1.2) mg/dL GFR Calculation 69.0 L (90-130) mL/min Glucose 127 H (65-115) mg/dL Calculated Osmolal ity 276 L (285-295) mOsm/k g Lactic Acid (0.5-2.2) mmol/L Calcium 9.3 (8.5-10.5) mg/dL Magnesium 2.2 (1.7-2.3) mg/dL Total Bilirubin 0.4 (0.15-1.2) mg/dL AST 12 (0-40) U/L ALT 15 (0-41) U/L Alkaline Phosphata se 90 (40-130) IU/L Troponin T Baselin e (0-15) ng/L Troponin T 120 Min ione (0-15) ng/L Delta Troponin T (0-10) ABS# NT-Pro-B Natriuret Pep 288 H (0-125) pg/mL Total Protein 7.2 (6.6-8.7) g/dL Albumin 3.0 L (3.5-5.2) g/dL Globulin 4.2 (1.3-4.6) g/dL SARS-CoV-2 Ag (Rap id) (Negative) 10/21/19 10/21/19 10/21/19 Range/Units 11:45 11:45 12:00 WBC (4.0-10.0) 10^3/ uL RBC (4.1-5.3) 10^6/u L Hgb (11.7-16.6) g/dL Hct (42.0-52.0) % MCV (80-94) fL MCH (28.0-34.0) pg MCHC (30.0-36.0) g/dL RDW (12.1-15.1) % Plt Count (130-400) 10^3/c mm MPV (7.4-10.4) fL Lymph % (Auto) [place] % (Auto) Lymph # (Auto) [place] # (Auto) Total Counted (0-100) Segmented Neutroph ils % Abs Segm Neuts (Ma n) (1.6-7.1) 10/cmm Lymphocytes (Manua l) % Monocytes (Manual) % Absolute Monocytes (0.1-0.6) 10^3/c mm Eosinophils (Manua l) % Absolute Eosinophi ls (0.0-0.7) 10^3/c mm Metamyelocytes % Platelet Estimate (Normal) Anisocytosis PT (12.1-14.9) SECO NDS INR (0.8-1.2) D-Dimer (0-0.59) ug/mIFE U Specimen Type Arterial Sample Site Radial, left ABG pH 7.46 H (7.35-7.45) ABG pCO2 34.2 L (35-45) mmHg ABG pO2 57.2 L (80.0-100.0) mmH g ABG HCO3 24.2 (22-26) mmol/L ABG O2 Saturation 89.6 ABG Base Excess 0.8 (-2.0-2.0) mmol/ L Emanuel Test Pos A-a O2 Gradient 6.4 (5-10) mmHg Hematocrit 41.4 L (42-52) % Hgb O2 Saturation 88.7 L (95-100) % Carboxyhemoglobin 0.5 (0.4-20.1) %THgb Methemoglobin 0.5 (0.4-1.5) % Total Hemoglobin 13.5 L (14-18) g/dL Ionized Calcium 1.2 (1.1-1.4) mmol/L O2 Delivery Device None FiO2 21.0 % Security Compliance Specialist ID Ed Sodium 136.0 (136-145) mmol/L Potassium 4.1 (3.5-5.1) mmol/L Chloride (98-107) mmol/L Carbon Dioxide (22-29) mmol/L Anion Gap (5-19) BUN (6-20) mg/dL Creatinine (0.7-1.2) mg/dL GFR Calculation (90-130) mL/min Glucose 104.0 (65-115) mg/dL Calculated Osmolal ity (285-295) mOsm/k g Lactic Acid 2.5 H (0.5-2.2) mmol/L Calcium (8.5-10.5) mg/dL Magnesium (1.7-2.3) mg/dL Total Bilirubin (0.15-1.2) mg/dL AST (0-40) U/L ALT (0-41) U/L Alkaline Phosphata se (40-130) IU/L Troponin T Baselin e 12 (0-15) ng/L Troponin T 120 Min ione (0-15) ng/L Delta Troponin T (0-10) ABS# NT-Pro-B Natriuret Pep (0-125) pg/mL Total Protein (6.6-8.7) g/dL Albumin (3.5-5.2) g/dL Globulin (1.3-4.6) g/dL SARS-CoV-2 Ag (Rap id) (Negative) 10/21/19 10/21/19 Range/Units 12:50 13:55 WBC (4.0-10.0) 10^3/ uL RBC (4.1-5.3) 10^6/u L Hgb (11.7-16.6) g/dL Hct (42.0-52.0) % MCV (80-94) fL MCH (28.0-34.0) pg MCHC (30.0-36.0) g/dL RDW (12.1-15.1) % Plt Count (130-400) 10^3/c mm MPV (7.4-10.4) fL Lymph % (Auto) [place] % (Auto) Lymph # (Auto) [place] # (Auto) Total Counted (0-100) Segmented Neutroph ils % Abs Segm Neuts (Ma n) (1.6-7.1) 10/cmm Lymphocytes (Manua l) % Monocytes (Manual) % Absolute Monocytes (0.1-0.6) 10^3/c mm Eosinophils (Manua l) % Absolute Eosinophi ls (0.0-0.7) 10^3/c mm Metamyelocytes % Platelet Estimate (Normal) Anisocytosis PT (12.1-14.9) SECO NDS INR (0.8-1.2) D-Dimer (0-0.59) ug/mIFE U Specimen Type Sample Site ABG pH (7.35-7.45) ABG pCO2 (35-45) mmHg ABG pO2 (80.0-100.0) mmH g ABG HCO3 (22-26) mmol/L ABG O2 Saturation ABG Base Excess (-2.0-2.0) mmol/ L Emanuel Test A-a O2 Gradient (5-10) mmHg Hematocrit (42-52) % Hgb O2 Saturation (95-100) % Carboxyhemoglobin (0.4-20.1) %THgb Methemoglobin (0.4-1.5) % Total Hemoglobin (14-18) g/dL Ionized Calcium (1.1-1.4) mmol/L O2 Delivery Device FiO2 % Security Compliance Specialist ID Sodium (136-145) mmol/L Potassium (3.5-5.1) mmol/L Chloride (98-107) mmol/L Carbon Dioxide (22-29) mmol/L Anion Gap (5-19) BUN (6-20) mg/dL Creatinine (0.7-1.2) mg/dL GFR Calculation (90-130) mL/min Glucose (65-115) mg/dL Calculated Osmolal ity (285-295) mOsm/k g Lactic Acid (0.5-2.2) mmol/L Calcium (8.5-10.5) mg/dL Magnesium (1.7-2.3) mg/dL Total Bilirubin (0.15-1.2) mg/dL AST (0-40) U/L ALT (0-41) U/L Alkaline Phosphata se (40-130) IU/L Troponin T Baselin e (0-15) ng/L Troponin T 120 Min ione 11.30 (0-15) ng/L Delta Troponin T -0.70 L (0-10) ABS# NT-Pro-B Natriuret Pep (0-125) pg/mL Total Protein (6.6-8.7) g/dL Albumin (3.5-5.2) g/dL Globulin (1.3-4.6) g/dL SARS-CoV-2 Ag (Rap id) Negative (Negative) Imaging Data^: CXR: Attestation: I personally reviewed and interpreted this imaging study as follows: My impression: Worsening left lower lobe infiltrate. CT Chest: Radiologist's impression: [place] [address] CT Scan Report Signed Patient: Mehdi Goodwin Unit #: [id number] : 1960 Age/Sex: 59 / M ADM Date: 10/21/19 Loc: ER Room/Bed: Attending Dr: Ordering Provider/Ordering MD: Nivia Emmanuel DO Date of Service: 10/21/19 Procedure(s): CT angio chest PE protcl [id number] Accession Number(s): [id number] Report Number: [id number] WS: [id number] CT CHEST ANGIOGRAPHY WITH REFORMATS HISTORY: Dyspnea, chest pain, positive d-dimer TECHNIQUE: Contiguous axial images are obtained through the chest during arterial injection of intravenous contrast. Images are reconstructed to evaluate the pulmonary a rteries. MIP imaging also reviewed. All CT scans at [facility] use at least one of these dose optimization techniques: automated exposure control; mA and/or kV adjustment per patient size (includes targeted exams where dose is matched to clinical indication); or iterative reconstruction. CONTRAST: Omnipaque 350; 95 mL IV. DLP: 576.74 mGy.cm COMPARISON: Chest radiograph 10/21/2019. Good opacification of the pulmonary arteries. Normal size pulmonary artery. No filling defects are noted within the pulmonary arteries. Normal-sized thoracic aorta. Mild enlargement of the LEFT heart chambers. No pericardial or pleural effusion. Dense opacification with consolidation involving nearly 50% LEFT lower lobe. There is additional mild airspace disease which is slightly wedge-shaped at the RIGHT lung base. There is extensive consolidation surrounding the LEFT hilum. Probably combination of atelectasis, lymphadenopathy and inflammatory lung disease. Largest lymph node measures 1.6 cm. Subcarinal node measuring 1.0 cm. Smaller paratracheal lymph nodes. Benign RIGHT lower lobe granuloma. Small amount of atelectasis or airspace disease along the superior RIGHT major fissure. No abnormality upper abdomen. Prior median sternotomy. Subxiphoid hernia contains fat only. CT/CT angio chest PE protcl [id number] IMPRESSION: 1. No pulmonary embolism is identified. 2. Dense consolidation LEFT lower lobe most likely pneumonia. 3. LEFT hilar lymphadenopathy and inflammatory changes contiguous with the LEFT lower lobe pneumonia. Probably reactive. Lymphadenopathy will need to be reevaluated by CT after treatment. Recommend follow-up chest CT with contrast after treatment for pneumonia. 4. Slightly wedge-shaped area of consolidation at the RIGHT lung base. Configuration is concerning for pneumonia or pulmonary infarct from embolic disease. No embolic disease was identified. Dictated By: Elyse Ellison DO Signed By: Elyse Ellison DO Signed Date/Time: 10/21/19 1312 DD/ 1303 EKG Data^: EKG 1: Attestation: I personally reviewed and interpreted this EKG as follows: EKG Interpretation Date: 10/21/19 EKG interpretation time: 11:37 Interpretation: Sinus tachycardia at 109 beats a minute, PACs present, right bundle branch block, normal intervals, nonspecific ST and T wave changes. Discharge Plan Discharge Patient Disposition: Admitted As Inpatient Clinical Impression: Pneumonia, Hypoxia Condition: Stable Prescriptions: No Action albuterol sulfate 2.5 mg /3 mL (0.083 %) solution for nebulization 2.5 mg inhalation Q6H PRN (Reason: UNKNOWN) RF: 0 clopidogrel 75 mg tablet 75 mg PO DAILY RF: 0 aspirin [Aspir-81] 81 mg Tablet,Delayed Release (Dr/Ec) 81 mg PO DAILY RF: 0 amlodipine 10 mg tablet 10 mg PO DAILY RF: 0 albuterol sulfate 90 mcg/actuation HFA aerosol inhaler 1 - 2 puff INHALATION Q4H PRN (Reason: Shortness Of Breath) RF: 0 losartan 100 mg tablet 100 mg PO DAILY RF: 0 duloxetine 60 mg capsule,delayed release(DR/EC) 60 mg PO DAILY RF: 0 Trelegy Ellipta 100-62.5-25 mcg blister with device 1 ea INHALATION DAILY RF: 0 levofloxacin [Levaquin] 750 mg tablet 750 mg PO DAILY 7 Days Qty: 7 RF: 0 Referrals: Hung Carmichael MD [Primary Care Provider] - Interventions: ED Charges Last Done: 10/21/19 12:54 Coding Level of Care Code ED Pottery Striper for Chg Fwd Exam Comprehensive
[2019-10-21 12:08] LABS: Hematocrit 41.8 % (42.0-52.0); Hemoglobin 13.2 g/dL (11.7-16.6); Mean Corpuscular HGB Conc 31.6 g/dL (30.0-36.0); Mean Corpuscular Hemoglobin 30.8 pg (28.0-34.0); Mean Corpuscular Volume 97.4 fL (80-94); Mean Platelet Volume 9.5 fL (7.4-10.4); Platelet Count 827 10^3/cmm (130-400); Red Blood Count 4.29 10^6/uL (4.1-5.3); Red Cell Distribution Width 14.5 % (12.1-15.1)
[2019-10-21 12:10] LABS: ABG PCO2 34.2 mmHg (35-45); ABG PH Result 7.46 (7.35-7.45); Alveolar-Arterial Oxygen Gradi 6.4 mmHg (5-10); Arterial Blood Gas Hematocrit 41.4 % (42-52); Base Excess ABG 0.8 mmol/L (-2.0-2.0); Blood Gas Allen Test Pos; Blood Gas Operator Identificat ED; Blood Gas Sample Site Radial, left; Blood Gas Sample Type Arterial; Carboxyhemoglobin 0.5 %THgb (0.4-20.1); HCO3 ABG 24.2 mmol/L (22-26); HGB O2 Sat 88.7 % (95-100); Ionized Calcium Level - ABG 1.2 mmol/L (1.1-1.4); Methemoglobin 0.5 % (0.4-1.5); Oxygen Saturation ABG 89.6; PO2 ABG 57.2 mmHg (80.0-100.0); Potassium Level - ABG 4.1 mmol/L (3.5-5.0); Total Hemoglobin 13.5 g/dL (14-18)
[2019-10-21 12:14] LABS: INR 1.12 (0.8-1.2)
[2019-10-21 12:16] LABS: D Dimer 2.84 ug/mIFEU (0-0.59)
--- NOTE | 2019-10-21 12:19 | CT_ITS ---
WS: [id number] CT CHEST ANGIOGRAPHY WITH REFORMATS HISTORY: Dyspnea, chest pain, positive d-dimer TECHNIQUE: Contiguous axial images are obtained through the chest during arterial injection of intrav enous contrast. Images are reconstructed to evaluate the pulmonary arteries. MIP imaging also reviewe d. All CT scans at [facility] use at least one of these dose optimization techniques: aut omated exposure control; mA and/or kV adjustment per patient size (includes targeted exams where dose is matched to clinical indication); or iterative reconstruction. CONTRAST: Omnipaque 350; 95 mL IV. DLP: 576.74 mGy.cm COMPARISON: Chest radiograph 10/21/2019. Good opacification of the pulmonary arteries. Normal size pulmonary artery. No filling defects are no michelle within the pulmonary arteries. Normal-sized thoracic aorta. Mild enlargement of the LEFT heart ch ambers. No pericardial or pleural effusion. Dense opacification with consolidation involving nearly 50% LEFT lower lobe. There is additional mild airspace disease which is slightly wedge-shaped at the RIGHT lung base. There is extensive consolida tion surrounding the LEFT hilum. Probably combination of atelectasis, lymphadenopathy and inflammator y lung disease. Largest lymph node measures 1.6 cm. Subcarinal node measuring 1.0 cm. Smaller paratra cheal lymph nodes. Benign RIGHT lower lobe granuloma. Small amount of atelectasis or airspace disease along the superior RIGHT major fissure. No abnormality upper abdomen. Prior median sternotomy. Subxiphoid hernia contains fat only. CT/CT angio chest PE protcl [id number] IMPRESSION: 1. No pulmonary embolism is identified. 2. Dense consolidation LEFT lower lobe most likely pneumonia. 3. LEFT hilar lymphadenopathy and inflammatory changes contiguous with the LEF T lower lobe pneumonia. Probably reactive. Lymphadenopathy will need to be reev aluated by CT after treatment. Recommend follow-up chest CT with contrast after treatment for pneumonia. 4. Slightly wedge-shaped area of consolidation at the RIGHT lung base. Configu ration is concerning for pneumonia or pulmonary infarct from embolic disease. N o embolic disease was identified.
[2019-10-21 12:20] LABS: Lactic Sepsis W/Reflex 2.5 mmol/L (0.5-2.2); Troponin(5th) Baseline 12 ng/L (0-15)
[2019-10-21 12:45] LABS: Alanine Aminotransferase 15 U/L (0-41); Alkaline Phosphatase 90 IU/L (40-130); Anion Gap 14.1 (5-19); Aspartate Amino Transferase 12 U/L (0-40); Blood Urea Nitrogen 22 mg/dL (6-20); Calcium 9.3 mg/dL (8.5-10.5); Carbon Dioxide 24 mmol/L (22-29); Chloride 100 mmol/L (98-107); Globulin 4.2 g/dL (1.3-4.6); Glucose 127 mg/dL (65-115); Magnesium 2.2 mg/dL (1.7-2.3); NT Pro B Type Natriuretic Pept 288 pg/mL (0-125); Osmolality Calculated 276 mOsm/kg (285-295); Potassium 4.1 mmol/L (3.5-5.1); Sodium 134 mmol/L (136-145); Total Bilirubin 0.4 mg/dL (0.15-1.2); Total Protein 7.2 g/dL (6.6-8.7)
[2019-10-21] MEDS: sodium chloride 0.9% 1,000 ML 999 ML IV (12:47)
--- NOTE | 2019-10-21 12:47 | PC.NURSE ---
Patient off unit to CT. Patient transferred via stretcher.
[2019-10-21 12:54] LABS: White Blood Count 30.6 10^3/uL (4.0-10.0)
[2019-10-21 12:55] LABS: Slide Review Slide Review Perform
[2019-10-21] MEDS: iohexol 350 mg/mL 100 mL Btl IV (12:58)
--- NOTE | 2019-10-21 13:06 | PC.NURSE ---
Patient back from CT, hooked back up to oxygen
[2019-10-21 13:30] LABS: Absolute Eosinophils 0.3 10^3/cmm (0.0-0.7); Absolute Segmented Neutrophil 26.6 10/cmm (1.6-7.1); Eosinophils 1 %; Lymphocytes 6 %; Monocytes Absolute 1.2 10^3/cmm (0.1-0.6); Segmented Neutrophils 87 %; Total Cells Counted 100 (0-100)
[2019-10-21 13:31] LABS: Anisocytosis 1+; Platelet Estimate Increased (Normal)
[2019-10-21 13:36] LABS: Reflex Lactate Order REFLEX LACTIC ORDERD
--- NOTE | 2019-10-21 13:41 | ECG_ITS ---
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 Measurements Intervals [place] Rate: 97 P: 53 MI: 142 QRS: 9 QRSD: 125 T: 52 QT: 395 QTc: 502 Interpretive Statements SINUS RHYTHM WITH FREQUENT SUPRAVENTRICULAR PREMATURE COMPLEXES INFERIOR MYOCARDIAL INFARCTION , PROBABLY OLD ANTEROLATERAL MYOCARDIAL INFARCTION , OF INDETERMINATE AGE [40+ ms Q WAVE IN I/aVL/V3-V6] Compared to ECG 10/21/2019 11:37:16 Sinus tachycardia no longer present Myocardial infarct finding still present Electronically Signed On 10-21-2019 21:06:09 CDT by Fe Barry M.D. [email or web address]
[2019-10-21 14:00] LABS: SARS Covid-2 Antigen Negative (Negative)
[2019-10-21] MEDS: ipratropium-albuterol 3 mL Neb 9 ML INHALATION (14:30)
[2019-10-21 15:34] LABS: Lactic Acid level (Lactate) 2.2 mmol/L (0.5-2.2)
[2019-10-21] MEDS: sodium chloride 0.9% 1,000 ML 100 ML IV (17:11)
--- NOTE | 2019-10-21 17:27 | PM.HP ---
Providers/Chief Complaint Admitting Physician: Didi Trinidad MD Primary Care Provider: Hung Carmichael MD Chief Complaint: SOB History of Present Illness Mehdi Goodwin is a 59 year old male with PMHx noted below, presents to the ER with complaints of worsening shortness of breath, malaise, dry cough with intermittent clear sputum production and generally feeling unwell since sometime last week. He had initially presented to the ER on 10/16 when his initially diagnosed with left lower lobe pneumonia, with noted leukocytosis with a white count of 28. Plan at that time was for admission for IV antibiotic therapy but patient declined this and opted to go home on oral antibiotics due to issues with having appropriate care for his grandchildren. He reports taking the antibiotics but continued to feel quite unwell so went to see his primary care provider Dr. Carmichael who then referred him to the hospital. He has been screened twice for COVID-19, both tests have been negative. He is a chronic smoker, smokes 1 pack/day. Was mildly hypoxic in the clinic so is currently on 2 L nasal cannula. Repeat labs today show increased leukocytosis with a white count of 30.6, normal hemoglobin, platelet count of 827, sodium of 134, BUN of 22, creatinine of 1.1, blood glucose of 127, lactic acid of 2.5, normal LFTs, BNP of 288. D-dimer is elevated at 2.84. Chest x-ray confirmed presence of pneumonia and CTA was done which ruled out PE but shows dense consolidation in the left lower lobe, left hilar lymphadenopathy and inflammatory changes as well as a slight wedge-shaped area of consolidation in the right lung base which could be consistent with pneumonia as well. He has received a dose of Primaxin, IV steroids, nebulizer treatments with some improvement. He also received some IV fluid hydration. In light of persistent infection, suboptimal treatment, worsening leukocytosis will need to IV antibiotic coverage, hence need for admission. Review of Systems Const: Reports: change in appetite (decreased appetite), fatigue and malaise; Denies: fever(s) or chills Eyes: Denies: change in vision ENMT: Reports: oral sores and dry mouth; Denies: odynophagia Card: Denies: chest pain, swelling of feet/ankles or lightheadedness Resp: Reports: productive cough (clear sputum); Denies: dyspnea GI: Denies: abdominal pain, nausea, vomiting, hematemesis or hematochezia : Denies: dysuria, urinary frequency or hematuria Musc: Denies: back pain Skin/Breast: Denies: rash Neuro: Denies: numbness in extremities or weakness in extremities Psych: Denies: anxiety Medications/Allergies Home Medications Medication Instructions Recorded Confirmed Last Taken Type albuterol sulfate 1 - 2 puff INHALATION Q4H PRN 10/17/19 10/21/19 10/21/19 History albuterol sulfate 2.5 mg INHALATION Q6H PRN 10/17/19 10/21/19 10/20/19 History amlodipine 10 mg PO DAILY 10/17/19 10/21/19 10/21/19 History aspirin [Aspir-81] 81 mg PO DAILY 10/17/19 10/21/19 10/21/19 History clopidogrel 75 mg PO DAILY 10/17/19 10/21/19 10/21/19 History duloxetine 60 mg PO DAILY 10/17/19 10/21/19 10/21/19 History zqcnhtivjej-xmlexbyqz-uamxfjjk 1 ea INHALATION DAILY 10/17/19 10/21/19 10/21/19 History [Trelegy Ellipta] levofloxacin [Levaquin] 750 mg PO DAILY 7 Days #7 tab 10/17/19 10/21/19 10/21/19 Rx losartan 100 mg PO DAILY 10/17/19 10/21/19 10/21/19 History Allergies Allergy/AdvReac Type Severity Reaction Status Date / Time Penicillins Allergy ALGY-Anaphy Verified 10/21/19 13:17 laxis PFSH Acute PFSH: Medical History (Updated 10/21/19 @ 20:01 by Didi Trinidad MD) COPD (chronic obstructive pulmonary disease) Coronary artery disease Hyperlipidemia Hypertension Obesity Thrombocytosis Surgical History (Updated 10/21/19 @ 19:52 by Didi Trinidad MD) Hx of CABG -CABG x 2 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 Family History Other CAD (coronary artery disease) Social History (Updated 10/21/19 @ 19:52 by Didi Trinidad MD) Smoking and tobacco status: current every day smoker cigarettes [ Other cigarette details: 1 pack/day ] Alcohol intake: never Substance/Drug Use: never Lives independently: Yes Household members: other Details: lives with 4 grandchildren Housing: House Vitals/I&O/Wt Last Vital Signs Temp 97.7 F 10/21/19 16:48 Pulse 89 10/21/19 16:48 Resp 22 H 10/21/19 16:48 BP 146/87 10/21/19 16:48 Pulse Ox 95 10/21/19 16:48 10/21/19 10/21/19 10/21/19 06:59 14:59 22:59 Intake Total 1100 / 1100 Balance 1100 / 1100 Weight last 48 hrs Weight 104.78 kg Physical Exam Const: COMMON NORMALS: no acute distress, patient oriented x3 and alert GENERAL APPEARANCE: cooperative and comfortable ORIENTATION/CONSCIOUSNESS: Yes awake OTHER: -somewhat ill appearing HENMT: COMMON NORMALS: normocephalic, atraumatic, hearing grossly normal bilaterally and moist oral mucous membranes HEAD & SCALP: normocephalic and atraumatic MOUTH: other (oral thrush) Eye: COMMON NORMALS: Equal, round and reactive pupils present, EOMs intact bilaterally and conjunctivae normal CONJUNCTIVA: Yes conjunctivae normal PUPIL: Yes Equal, round and reactive pupils present Neck/C-Spine: COMMON NORMALS: full ROM GENERAL: Yes normal visual inspection and Yes trachea midline Resp: COMMON NORMALS: normal respiratory effort, No retractions, No use of accessory muscles and clear to auscultation bilaterally EFFORT & INSPECTION: Yes able to speak in complete sentences, Yes symmetric chest movement and No tachypneic AUSCULTATION: rhonchi left lower OTHER: -on 2 L NC Cardio: COMMON NORMALS: regular rate, regular rhythm, S1 normal heart sound present, S2 normal heart sound present and No murmurs present (Cardio) RATE: regular rate RHYTHM: regular rhythm HEART SOUNDS: S1 normal heart sound present and S2 normal heart sound present GI: COMMON NORMALS: Normal to inspection, nondistended, normoactive bowel sounds present, Soft to palpation and non-tender INSPECTION: Yes central obesity PALPATION: Yes Soft to palpation Extremity: COMMON NORMALS: normal to inspection, full ROM and no clubbing, cyanosis or edema; negative for no pedal edema Neuro: COMMON NORMALS: patient oriented x3, moves all extremities, no focal motor deficits and no sensory deficits noted Psych: COMMON NORMALS: mental status grossly normal, Normal thought process present, cooperative, normal affect and speech normal SPEECH: Yes normal speech THOUGHT PROCESS: Normal thought process present Skin: COMMON NORMALS: no rashes or lesions noted, no jaundice, no petechiae and no mottling GENERAL SKIN EXAM: no rashes or lesions noted Data : 10/21/19 11:45 10/21/19 11:45 Micro: Microbiology 10/21/19 12:20 Blood Culture - Preliminary Blood SPECIMEN COLLECTED 10/21/19 11:45 Blood Culture - Preliminary Blood SPECIMEN COLLECTED A&P Assessment and plan (1) Pneumonia: -Noted evidence of dense consolidation involving left lower lobe with some hilar lymphadenopathy and inflammatory changes. Noted slight wedge-shaped area of consolidation at right lung base that may be indicative of infection as well. PE ruled out, noted D-dimer elevation -will need follow up imaging following treatment of infection -Mild hypoxia prior to arrival, currently on 2 L nasal cannula, continue to monitor respiratory status and provide supplemental oxygen as needed -Noted significant leukocytosis with a white count of 13.6, currently afebrile, lactic acid of 2.5, evidence of hypoxia on ABG -Screen for COVID-19: negative x 2 -f/u blood cx -check bacterial antigens, MRSA, Legionella -had been on oral Levaquin; switch to IV and add Vancomycin. Has allergy to PCN so hold off on Zosyn -monitor vital signs Status: Acute Qualifiers: Laterality: left Lung location: lower lobe of lung Pneumonia type: due to unspecified organism Qualified Code(s): J18.9 - Pneumonia, unspecified organism (2) COPD (chronic obstructive pulmonary disease): -mild acute exacerbation with need for supplemental oxygen support currently -Duonebs, short course of oral steroids -imaging noted Status: Acute Qualifiers: COPD type: COPD with acute exacerbation Qualified Code(s): J44.1 - Chronic obstructive pulmonary disease with (acute) exacerbation (3) Hypertension: -normotensive currently; continue to monitor vital signs -resume oral antihypertensives Status: Chronic Qualifiers: Hypertension type: essential hypertension Qualified Code(s): I10 - Essential (primary) hypertension (4) Coronary artery disease: -s/p CABG x 2 -resume ASA, plavix Status: Chronic Qualifiers: Coronary Disease-Associated Artery/Lesion type: [place] artery [place] vs. transplanted heart: [place] heart Associated angina: angina presence unspecified Qualified Code(s): I25.10 - Atherosclerotic heart disease of [place] coronary artery without angina pectoris (5) Hyperlipidemia: Status: Chronic Qualifiers: Hyperlipidemia type: unspecified Qualified Code(s): E78.5 - Hyperlipidemia, unspecified (6) Thrombocytosis: -has known hx of thrombocytosis, increased platelet count likely due to acute infection -peripheral smear ordered Status: Acute (7) Obesity: -BMI-31 kg/m2 Status: Chronic Qualifiers: Obesity type: due to excess calories Obesity classification: adult class 1 (BMI 30 - 34.9) Serious obesity comorbidity presence: with serious comorbidity Body mass index: BMI 31.0-31.9 Qualified Code(s): E66.09 - Other obesity due to excess calories; Z68.31 - Body mass index (BMI) 31.0-31.9, adult Additional A&P Information -Chronic smoker; 1 PPD; nicotine replacement therapy -oral thrush: nystatin swish and swallow -RAPHAEL on CKD stage 2; baseline Cr is around 0.8; gentle IVF hydration; repeat labs in AM, avoid nephrotoxins, renally dose meds -cardiac diet as tolerated -GI ppx with PPI -DVT ppx with Lovenox -Dispo: home -Code status: FULL code Attestations Medical Necessity Statement*: Mehdi Jones Buddy's hospital stay will require greater than 2 midnights for treatment of pneumonia requiring IV antibiotic therapy, supplemental oxygen support and close monitoring. Time Spent in Patient Care: Greater than 35 minutes (>than 50% of time spent in counselling and/or direct pt care on unit). 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 transplanted heart: [place] heart Associated angina: angina presence unspecified Hyperlipidemia E78.5 Hyperlipidemia type: unspecified Thrombocytosis D47.3 Obesity E66.09; Z68.31 Obesity type: due to excess calories Obesity classification: adult class 1 (BMI 30 - 34.9) Serious obesity comorbidity presence: with serious comorbidity Body mass index: BMI 31.0-31.9
[2019-10-21] MEDS: levofloxacin-dextrose 5 % 750 MG/150 ML PREMIX 100 MG IV (18:17)
[2019-10-21 18:52] LABS: Troponin 5 6HR 8.66 ng/L (0-15)
[2019-10-21 18:57] LABS: Troponin 5 6HR Delta -3.34 ng/L (0-12)
[2019-10-21] MEDS: nystatin 100,000 unit/mL UDC 5 mL 500000 UNIT PO (20:16)
[2019-10-21] MEDS: nicotine 14 mg Patch 1 PATCH TRANSDERMA (20:26)
[2019-10-21 20:57] LABS: LAB Peripheral Smear Sent for Review
[2019-10-21 23:51] LABS: Add Urine Microscopic? NO
[2019-10-21 23:58] LABS: Specific Gravity, Urine 1.025 (1.005-1.030); Urine Appearance Clear (CLEAR); Urine Color Yellow (Yellow); pH Urine 5 (5-7)
[2019-10-21 23:59] LABS: Bilirubin Urine Neg (NEGATIVE); Blood Urine Neg (Negative); Glucose Urine UA Norm (Normal); Ketones Urine Negative (Negative); Leukocyte Esterase Urine Negative (Negative); Nitrate Urine Negative (Negative); Protein Urine Neg (Negative); Urobilinogen Urine Norm (Negative)
[2019-10-22] VITALS (11 sets, daily range): BP systolic 137–181; BP diastolic 90–113; PULSE 80–92; RESP 14–22; TEMP 36.4–37.1; O2SAT 93–97
[2019-10-22] MEDS: morphine 4 mg/mL SDV 1 mL 2 MG IVP ×3 (02:45→20:39)
[2019-10-22] MEDS: sodium chloride 0.9% 1,000 ML 100 ML IV (02:53)
[2019-10-22] MEDS: hyDRALAzine 20 mg/mL INJ 1 mL 10 MG IVP ×2 (03:48→09:19)
[2019-10-22 04:55] LABS: Basophils # 0.1 10^3/uL (0.0-0.1); Basophils % 0.4 %; Hematocrit 40.5 % (42.0-52.0); Hemoglobin 12.7 g/dL (11.7-16.6); Lymphocytes # 1.7 10^3/uL (0.8-4.8); Lymphocytes % 4.9 %; Mean Corpuscular HGB Conc 31.4 g/dL (30.0-36.0); Mean Corpuscular Volume 98.8 fL (80-94); Mean Platelet Volume 9.2 fL (7.4-10.4); Monocytes # 0.6 10^3/uL (0.2-0.9); Monocytes % 1.7 %; Neutrophils # 28.25 10^3/uL (1.8-7.7); Neutrophils % 82.7 %; Nucleated Red Blood Cells % 0 %; Platelet Count 924 10^3/cmm (130-400); Red Cell Distribution Width 14.4 % (12.1-15.1)
[2019-10-22 05:13] LABS: Anion Gap 19.4 (5-19); Blood Urea Nitrogen 19 mg/dL (6-20); Calcium 8.4 mg/dL (8.5-10.5); Carbon Dioxide 22 mmol/L (22-29); Chloride 98 mmol/L (98-107); Glomerular Filtration Rate 116.2 mL/min (90-130); Glucose 130 mg/dL (65-115); Osmolality Calculated 278 mOsm/kg (285-295); Potassium 4.4 mmol/L (3.5-5.1); Sodium 135 mmol/L (136-145)
[2019-10-22 05:56] LABS: Slide Review Slide Review Perform; White Blood Count 34.2 10^3/uL (4.0-10.0)
[2019-10-22] MEDS: amlodipine 10 mg Tablet PO (08:55)
[2019-10-22] MEDS: pantoprazole DR 40 mg Tablet PO (08:55)
[2019-10-22] MEDS: duloxetine 60 mg Capsule PO (08:55)
[2019-10-22] MEDS: losartan 50 mg Tablet 100 MG PO (08:55)
[2019-10-22] MEDS: aspirin 81 mg Chew Tablet PO (08:55)
[2019-10-22] MEDS: nicotine 14 mg Patch 1 PATCH TRANSDERMA (08:56)
[2019-10-22] MEDS: clopidogrel 75 mg Tablet PO (08:56)
[2019-10-22] MEDS: nystatin 100,000 unit/mL UDC 5 mL 500000 UNIT PO ×4 (08:58→20:35)
--- NOTE | 2019-10-22 12:14 | P.PN_ITS ---
Subjective Subjective: Interval history: Hypertensive and required addition of hydralazine overnight for better blood pressure control. Remains on some supplemental oxygen support. Noted increased leukocytosis this morning with white count up to 34.2. Appears ill and quite fatigued today, reports poor sleep overnight. Appetite remains diminished. Medications: Reviewed: Yes Medication Review Details: Active Medications Generic Name Dose Route Start Last Admin Trade Name Freq PRN Reason Stop Dose Admin Acetaminophen 650 mg 10/21/19 16:48 Tylenol PO Q6H PRN Mild/Mod Pain Or Temp >/= 101 Albuterol/Ipratrop ium 3 ml 10/21/19 17:38 Duoneb INHALATION Q6H PRN SHORTNESS OF LUCY TH Amlodipine Besylat e 10 mg 10/22/19 09:00 10/22/19 08:55 Norvasc PO 10 mg DAILY JAVON Administration Aspirin 81 mg 10/22/19 09:00 10/22/19 08:55 Aspirin Chewable PO 81 mg DAILY JAVON Administration Clopidogrel Bisulf ate 75 mg 10/22/19 09:00 10/22/19 08:56 Plavix PO 75 mg DAILY JAVON Administration Duloxetine HCl 60 mg 10/22/19 09:00 10/22/19 08:55 Cymbalta PO 60 mg DAILY JAVON Administration Enoxaparin Sodium 40 mg 10/21/19 17:30 10/21/19 20:15 Lovenox SUBCUT Not Given Q24H JAVON Hydralazine HCl 10 mg 10/22/19 03:40 10/22/19 09:19 Apresoline IVP 10 mg Q4H PRN Administration HYPERTENSION Levofloxacin/Dextr ose 750 mg in 150 mls @ 100 mls/hr 10/21/19 18:00 10/21/19 18:17 Levaquin-D5w IV 100 mls/hr Q24H JAVON Administration Protocol Vancomycin HCl 1,5 00 mg/ 250 mls @ 166.667 mls/hr 10/21/19 19:00 10/22/19 06:13 Sodium Chloride IV 166.7 mls/hr Q12H JAVON Administration Losartan Potassium 100 mg 10/22/19 09:00 10/22/19 08:55 Cozaar PO 100 mg DAILY JAVON Administration Morphine Sulfate 2 mg 10/21/19 20:12 10/22/19 02:45 Morphine IVP 2 mg Q4H PRN Administration SEVERE PAIN Nicotine 1 patch 10/21/19 20:15 10/22/19 08:56 Nicoderm 14 Mg P atch TRANSDERMA 1 patch DAILY JAVON Administration Nystatin 500,000 unit 10/21/19 21:00 10/22/19 08:58 Nystatin PO 500,000 unit QID JAVON Administration Ondansetron HCl 4 mg 10/21/19 16:48 Zofran IVP Q6H PRN NAUSEA AND VOMITI NG Pantoprazole Sodiu m 40 mg 10/22/19 09:00 10/22/19 08:55 Protonix PO 40 mg DAILY JAVON Administration Penicillins Allergy (Verified 10/21/19 13:17) ALGY-Anaphylaxis Vitals/I&O/Wt Last Vital Signs Temp 98.5 F 10/22/19 08:00 Pulse 83 10/22/19 08:00 Resp 16 10/22/19 08:00 BP 164/105 10/22/19 08:55 Pulse Ox 93 10/22/19 08:00 10/21/19 10/22/19 10/22/19 22:59 06:59 14:59 Intake Total 730 / 1830 970 / 2800 360 / 360 Output Total 650 / 650 Balance 730 / 1830 970 / 2800 -290 / -290 Weight last 48 hrs Weight 104.78 kg Physical Exam Const: COMMON NORMALS: no acute distress, patient oriented x3 and alert GENERAL APPEARANCE: cooperative and comfortable ORIENTATION/CONSCIOUSNESS: Yes awake OTHER: -ill appearing, fatigued HENMT: COMMON NORMALS: normocephalic, atraumatic, hearing grossly normal bilaterally and moist oral mucous membranes HEAD & SCALP: normocephalic and atraumatic MOUTH: other (oral thrush) Eye: COMMON NORMALS: Equal, round and reactive pupils present, EOMs intact bilaterally and conjunctivae normal CONJUNCTIVA: Yes conjunctivae normal PUPIL: Yes Equal, round and reactive pupils present Neck/C-Spine: COMMON NORMALS: full ROM GENERAL: Yes normal visual inspection and Yes trachea midline Resp: COMMON NORMALS: normal respiratory effort, No retractions, No use of accessory muscles and clear to auscultation bilaterally EFFORT & INSPECTION: Yes able to speak in complete sentences, Yes symmetric chest movement and No tachypneic AUSCULTATION: clear to auscultation bilaterally and rhonchi left lower OTHER: -on 2 L NC Cardio: COMMON NORMALS: regular rate, regular rhythm, S1 normal heart sound present, S2 normal heart sound present and No murmurs present (Cardio) RATE: regular rate RHYTHM: regular rhythm HEART SOUNDS: S1 normal heart sound present and S2 normal heart sound present GI: COMMON NORMALS: Normal to inspection, nondistended, normoactive bowel sounds present, Soft to palpation and non-tender INSPECTION: Yes central obesity PALPATION: Yes Soft to palpation Extremity: COMMON NORMALS: normal to inspection, full ROM and no clubbing, cyanosis or edema; negative for no pedal edema Neuro: COMMON NORMALS: patient oriented x3, moves all extremities, no focal motor deficits and no sensory deficits noted SENSORIUM/ORIENTATION: Yes alert Psych: COMMON NORMALS: mental status grossly normal, Normal thought process present, cooperative, normal affect and speech normal SPEECH: Yes normal speech THOUGHT PROCESS: Normal thought process present Skin: COMMON NORMALS: no rashes or lesions noted, no jaundice, no petechiae and no mottling GENERAL SKIN EXAM: no rashes or lesions noted Data : 10/22/19 04:25 10/22/19 04:25 Micro: Microbiology 10/21/19 11:45 Blood Culture - Preliminary Blood NEGATIVE TO DATE 10/21/19 23:45 Legionella Urinary Antigen - Final Urine,Voided Bacterial Antigens - Final 10/21/19 12:20 Blood Culture - Preliminary Blood SPECIMEN COLLECTED A&P Assessment and plan (1) Pneumonia: -Noted evidence of dense consolidation involving left lower lobe with some hilar lymphadenopathy and inflammatory changes. Noted slight wedge-shaped area of consolidation at right lung base that may be indicative of infection as well. PE ruled out, noted D-dimer elevation -will need follow up imaging following treatment of infection -Mild hypoxia prior to arrival, currently on 2 L nasal cannula, continue to monitor respiratory status and provide supplemental oxygen as needed -Noted significant leukocytosis with a white count of 34.2, afebrile, lactic acid normalized (2.2), evidence of hypoxia on ABG -Screened for COVID-19: negative x 2 -blood cx: prelim negative -negative bacterial antigens, Legionella; MRSA pending -had been on oral Levaquin; on IV Levaquin and Vancomycin. Has allergy to PCN so hold off on Zosyn -continue to monitor vital signs Status: Acute Qualifiers: Laterality: left Lung location: lower lobe of lung Pneumonia type: due to unspecified organism Qualified Code(s): J18.9 - Pneumonia, unspecified organism (2) COPD (chronic obstructive pulmonary disease): -mild acute exacerbation with need for supplemental oxygen support currently -Duonebs, d/c steroids due to significant hypertension, leukocytosis -imaging noted Status: Acute Qualifiers: COPD type: COPD with acute exacerbation Qualified Code(s): J44.1 - Chronic obstructive pulmonary disease with (acute) exacerbation (3) Hypertension: -hypertensive currently; continue to monitor vital signs -continue oral antihypertensives; hydralazine PRN Status: Chronic Qualifiers: Hypertension type: essential hypertension Qualified Code(s): I10 - Essential (primary) hypertension (4) Coronary artery disease: -s/p CABG x 2 -continue ASA, plavix Status: Chronic Qualifiers: Associated angina: angina presence unspecified Coronary Disease- Associated Artery/Lesion type: [place] artery [place] vs. transplanted heart: [place] heart Qualified Code(s): I25.10 - Atherosclerotic heart disease of [place] coronary artery without angina pectoris (5) Hyperlipidemia: Status: Chronic Qualifiers: Hyperlipidemia type: unspecified Qualified Code(s): E78.5 - Hyperlipidemia, unspecified (6) Thrombocytosis: -has known hx of thrombocytosis, increased platelet count likely due to acute infection -peripheral smear ordered Status: Acute (7) Obesity: -BMI-31 kg/m2 Status: Chronic Qualifiers: Body mass index: BMI 31.0-31.9 Obesity classification: adult class 1 (BMI 30 - 34.9) Obesity type: due to excess calories Serious obesity comorbidity presence: with serious comorbidity Qualified Code(s): E66.09 - Other obesity due to excess calories; Z68.31 - Body mass index (BMI) 31.0-31.9, adult Additional A&P Information -Chronic smoker; 1 PPD; nicotine replacement therapy -oral thrush: nystatin swish and swallow -RAPHAEL on CKD stage 2; baseline Cr is around 0.8; renal function normalized; d/c IVF, encourage oral hydration, avoid nephrotoxins, renally dose meds -cardiac diet as tolerated -GI ppx with PPI -DVT ppx with Lovenox -Dispo: home -Code status: FULL code Attestations Medical Necessity Statement*: Patient requires hospitalization for continued management of pneumonia, on IV antibiotic treatment. Time Spent in Patient Care: 16 - 35 minutes (>than 50% of time spent in counselling and/or direct pt care on unit) . Coding Level of Care Code Acute [employer] Reporter for [employer] Fwd Exam Comprehensive Diagnoses Pneumonia J18.9 Laterality: left Lung location: lower lobe of lung Pneumonia type: due to unspecified organism COPD (chronic obstructive pulmonary disease) J44.1 COPD type: COPD with acute exacerbation Hypertension I10 Hypertension type: essential hypertension Coronary artery disease I25.10 Associated angina: angina presence unspecified Coronary Disease-Associated Artery/Lesion type: [place] artery [place] vs. transplanted heart: [place] heart Hyperlipidemia E78.5 Hyperlipidemia type: unspecified Thrombocytosis D47.3 Obesity E66.09; Z68.31 Body mass index: BMI 31.0-31.9 Obesity classification: adult class 1 (BMI 30 - 34.9) Obesity type: due to excess calories Serious obesity comorbidity presence: with serious comorbidity
--- NOTE | 2019-10-22 13:04 | PC.RESP ---
SMOKING CESSATION AND PULMONARY REHAB INFORMATION SENT TO PATIENT.
[2019-10-22 15:10] LABS: Immunoglobulin IGA 408 mg/dL (70-400); Immunoglobulin IGG 912 mg/dL (700-1600); Immunoglobulin IGM 77 mg/dL (40-230)
[2019-10-22] MEDS: levofloxacin-dextrose 5 % 750 MG/150 ML PREMIX 100 MG IV (17:17)
[2019-10-23] VITALS (10 sets, daily range): BP systolic 122–170; BP diastolic 81–109; PULSE 74–87; RESP 16–24; TEMP 36.6–37.1; O2SAT 93–95
[2019-10-23] MEDS: hyDRALAzine 20 mg/mL INJ 1 mL 10 MG IVP (04:19)
[2019-10-23] MEDS: acetaminophen 325 mg Tablet 650 MG PO (06:16)
--- NOTE | 2019-10-23 06:24 | PC.NURSE ---
SHIFT SUMMARY Had Morphine for pain in left upper abdomen/ribcage area at first of shift then denied need for it further. O2 in place at 2l per NC. Has occ dry cough and some SOB with exertion. BP was up to 170/109 with 0400 am VS and was given dose of prn IV Hydralazine. Back down to 163/92. c/o headache this am and given po Tylenol. Voiding per urinal. Receiving IV antibiotics
--- NOTE | 2019-10-23 06:30 | PC.NURSE ---
VANC T Scanned and started to hang Vancomycin dose when lab came to draw trough. Med not started and will await trough result
[2019-10-23 06:41] LABS: Hematocrit 38.7 % (42.0-52.0); Hemoglobin 12.3 g/dL (11.7-16.6); Mean Corpuscular HGB Conc 31.8 g/dL (30.0-36.0); Mean Corpuscular Hemoglobin 31.2 pg (28.0-34.0); Mean Corpuscular Volume 98.2 fL (80-94); Mean Platelet Volume 8.7 fL (7.4-10.4); Platelet Count 957 10^3/cmm (130-400); Red Blood Count 3.94 10^6/uL (4.1-5.3); Red Cell Distribution Width 14.5 % (12.1-15.1)
[2019-10-23 07:14] LABS: Vancomycin Trough 20.4 ug/mL (10-15)
[2019-10-23] MEDS: ipratropium-albuterol 3 mL Neb INHALATION (07:37)
[2019-10-23 07:43] LABS: Slide Review Slide Review Perform
[2019-10-23 07:45] LABS: Absolute Eosinophils 0.2 10^3/cmm (0.0-0.7); Absolute Neutrophil 16.3 10^3/cmm (1.4-6.5); Absolute Segmented Neutrophil 15.6 10/cmm (1.6-7.1); Band Neutrophils Absolute 0.7 10^3/cmm (0.0-1.2); Eosinophils 1 %; Giant Platelets Trace; Lymphocytes 22 %; Monocytes Absolute 1.2 10^3/cmm (0.1-0.6); Platelet Estimate Increased (Normal); Segmented Neutrophils 65 %; Total Cells Counted 100 (0-100)
[2019-10-23] MEDS: nicotine 14 mg Patch 1 PATCH TRANSDERMA (08:31)
[2019-10-23] MEDS: nystatin 100,000 unit/mL UDC 5 mL 500000 UNIT PO ×4 (08:31→20:08)
[2019-10-23] MEDS: losartan 50 mg Tablet 100 MG PO (08:31)
[2019-10-23] MEDS: duloxetine 60 mg Capsule PO (08:31)
[2019-10-23] MEDS: aspirin 81 mg Chew Tablet PO (08:32)
[2019-10-23] MEDS: clopidogrel 75 mg Tablet PO (08:32)
[2019-10-23] MEDS: pantoprazole DR 40 mg Tablet PO (08:32)
[2019-10-23] MEDS: amlodipine 10 mg Tablet PO (08:32)
--- NOTE | 2019-10-23 12:30 | PM.PN ---
Subjective Subjective: Interval history: Blood pressure improved, afebrile, decreased leukocytosis today with a white count of 24, thrombocytosis persists with a platelet count of 957. MRSA negative. Overall demeanor seems improved, not quite as ill-appearing today. Oral intake slightly improved today. Still fatigued and is spent most of the day sleeping off and on. Discussed findings from peripheral smear per discussion with pathology. Patient admits that he has had ongoing issues with easy fatigability, night sweats, decreased appetite and weight loss. Medications: Reviewed: Yes Medication Review Details: Active Medications Generic Name Dose Route Start Last Admin Trade Name Freq PRN Reason Stop Dose Admin Acetaminophen 650 mg 10/21/19 16:48 10/23/19 06:16 Tylenol PO 650 mg Q6H PRN Administration Mild/Mod Pain Or Temp >/= 101 Albuterol/Ipratrop ium 3 ml 10/21/19 17:38 10/23/19 07:37 Duoneb INHALATION 3 ml Q6H PRN Administration SHORTNESS OF LUCY TH Amlodipine Besylat e 10 mg 10/22/19 09:00 10/23/19 08:32 Norvasc PO 10 mg DAILY JAVON Administration Aspirin 81 mg 10/22/19 09:00 10/23/19 08:32 Aspirin Chewable PO 81 mg DAILY JAVON Administration Clopidogrel Bisulf ate 75 mg 10/22/19 09:00 10/23/19 08:32 Plavix PO 75 mg DAILY JAVON Administration Duloxetine HCl 60 mg 10/22/19 09:00 10/23/19 08:31 Cymbalta PO 60 mg DAILY JAVON Administration Enoxaparin Sodium 40 mg 10/21/19 17:30 10/22/19 20:35 Lovenox SUBCUT Not Given Q24H [facility] Hydralazine HCl 10 mg 10/22/19 03:40 10/23/19 04:19 Apresoline IVP 10 mg Q4H PRN Administration HYPERTENSION Levofloxacin/Dextr ose 750 mg in 150 mls @ 100 mls/hr 10/21/19 18:00 10/22/19 17:17 Levaquin-D5w IV 100 mls/hr Q24H JAVON Administration Protocol Vancomycin HCl 1,2 50 mg/ 250 mls @ 166.667 mls/hr 10/24/19 05:00 Sodium Chloride IV Q12H [facility] Losartan Potassium 100 mg 10/22/19 09:00 10/23/19 08:31 Cozaar PO 100 mg DAILY JAVON Administration Morphine Sulfate 2 mg 10/21/19 20:12 10/22/19 20:39 Morphine IVP 2 mg Q4H PRN Administration SEVERE PAIN Nicotine 1 patch 10/21/19 20:15 10/23/19 08:31 Nicoderm 14 Mg P atch TRANSDERMA 1 patch DAILY JAVON Administration Nystatin 500,000 unit 10/21/19 21:00 10/23/19 08:31 Nystatin PO 500,000 unit QID JAVON Administration Ondansetron HCl 4 mg 10/21/19 16:48 Zofran IVP Q6H PRN NAUSEA AND VOMITI NG Pantoprazole Sodiu m 40 mg 10/22/19 09:00 10/23/19 08:32 Protonix PO 40 mg DAILY JAVON Administration Penicillins Allergy (Verified 10/21/19 13:17) ALGY-Anaphylaxis Vitals/I&O/Wt Last Vital Signs Temp 98.5 F 10/23/19 11:27 Pulse 80 10/23/19 11:27 Resp 18 10/23/19 11:27 BP 154/94 10/23/19 11:27 Pulse Ox 94 10/23/19 11:27 10/22/19 10/23/19 10/23/19 22:59 06:59 14:59 Intake Total 610 / 1460 120 / 1580 370 / 370 Output Total 350 / 1400 650 / 2050 360 / 360 Balance 260 / 60 -530 / -470 10 / 10 Weight last 48 hrs Weight 105.233 kg Physical Exam Const: COMMON NORMALS: no acute distress, patient oriented x3 and alert GENERAL APPEARANCE: cooperative and comfortable ORIENTATION/CONSCIOUSNESS: Yes awake OTHER: -ill appearing (less so), fatigued HENMT: COMMON NORMALS: normocephalic, atraumatic, hearing grossly normal bilaterally and moist oral mucous membranes HEAD & SCALP: normocephalic and atraumatic MOUTH: other (oral thrush) Eye: COMMON NORMALS: Equal, round and reactive pupils present, EOMs intact bilaterally and conjunctivae normal CONJUNCTIVA: Yes conjunctivae normal PUPIL: Yes Equal, round and reactive pupils present Neck/C-Spine: COMMON NORMALS: full ROM GENERAL: Yes normal visual inspection and Yes trachea midline Resp: COMMON NORMALS: normal respiratory effort, No retractions, No use of accessory muscles and clear to auscultation bilaterally EFFORT & INSPECTION: Yes able to speak in complete sentences, Yes symmetric chest movement and No tachypneic AUSCULTATION: clear to auscultation bilaterally and rhonchi left lower OTHER: -on 2 L NC Cardio: COMMON NORMALS: regular rate, regular rhythm, S1 normal heart sound present, S2 normal heart sound present and No murmurs present (Cardio) RATE: regular rate RHYTHM: regular rhythm HEART SOUNDS: S1 normal heart sound present and S2 normal heart sound present GI: COMMON NORMALS: Normal to inspection, nondistended, normoactive bowel sounds present, Soft to palpation and non-tender INSPECTION: Yes central obesity PALPATION: Yes Soft to palpation Extremity: COMMON NORMALS: normal to inspection, full ROM and no clubbing, cyanosis or edema; negative for no pedal edema Neuro: COMMON NORMALS: patient oriented x3, moves all extremities, no focal motor deficits and no sensory deficits noted SENSORIUM/ORIENTATION: Yes alert Psych: COMMON NORMALS: mental status grossly normal, Normal thought process present, cooperative, normal affect and speech normal SPEECH: Yes normal speech THOUGHT PROCESS: Normal thought process present Skin: COMMON NORMALS: no rashes or lesions noted, no jaundice, no petechiae and no mottling GENERAL SKIN EXAM: no rashes or lesions noted Data : 10/23/19 06:34 10/22/19 04:25 Micro: Microbiology 10/22/19 15:40 MRSA Culture - Final Nose 10/21/19 12:20 Blood Culture - Preliminary Blood NEGATIVE TO DATE 10/21/19 11:45 Blood Culture - Preliminary Blood NEGATIVE TO DATE 10/21/19 23:45 Legionella Urinary Antigen - Final Urine,Voided Bacterial Antigens - Final A&P Assessment and plan (1) Pneumonia: -Noted evidence of dense consolidation involving left lower lobe with some hilar lymphadenopathy and inflammatory changes. Noted slight wedge-shaped area of consolidation at right lung base that may be indicative of infection as well. PE ruled out, noted D-dimer elevation -will need follow up imaging following treatment of infection -Mild hypoxia prior to arrival, currently on 2 L nasal cannula, continue to monitor respiratory status and provide supplemental oxygen as needed -decreasing though still significant leukocytosis (WBC-24), afebrile, lactic acid normalized (2.2), evidence of hypoxia on ABG -Screened for COVID-19: negative x 2 -blood cx: prelim negative -negative bacterial antigens, Legionella, MRSA -had been on oral Levaquin; on IV Levaquin and Vancomycin. Has allergy to PCN so hold off on Zosyn -continue to monitor vital signs Status: Acute Qualifiers: Laterality: left Lung location: lower lobe of lung Pneumonia type: due to unspecified organism Qualified Code(s): J18.9 - Pneumonia, unspecified organism (2) COPD (chronic obstructive pulmonary disease): -mild acute exacerbation with need for supplemental oxygen support currently -Duonebs, d/c steroids due to significant hypertension, leukocytosis -imaging noted Status: Acute Qualifiers: COPD type: COPD with acute exacerbation Qualified Code(s): J44.1 - Chronic obstructive pulmonary disease with (acute) exacerbation (3) Hypertension: -BP improved; continue to monitor vital signs -continue oral antihypertensives; hydralazine PRN Status: Chronic Qualifiers: Hypertension type: essential hypertension Qualified Code(s): I10 - Essential (primary) hypertension (4) Coronary artery disease: -s/p CABG x 2 -continue ASA, plavix Status: Chronic Qualifiers: Associated angina: angina presence unspecified Coronary Disease-Associated Artery/Lesion type: [place] artery [place] vs. transplanted heart: [place] heart Qualified Code(s): I25.10 - Atherosclerotic heart disease of [place] coronary artery without angina pectoris (5) Hyperlipidemia: Status: Chronic Qualifiers: Hyperlipidemia type: unspecified Qualified Code(s): E78.5 - Hyperlipidemia, unspecified (6) Thrombocytosis: -has known hx of thrombocytosis, increased platelet count likely due to acute infection -peripheral smear findings discussed with Dr. Gtz; will likely need repeat evaluation following treatment and resolution of infection. IgG, IgM wnl, IgA high normal Status: Acute (7) Obesity: -BMI-31 kg/m2 Status: Chronic Qualifiers: Body mass index: BMI 31.0-31.9 Obesity classification: adult class 1 (BMI 30 - 34.9) Obesity type: due to excess calories Serious obesity comorbidity presence: with serious comorbidity Qualified Code(s): E66.09 - Other obesity due to excess calories; Z68.31 - Body mass index (BMI) 31.0-31.9, adult Additional A&P Information -Chronic smoker; 1 PPD; nicotine replacement therapy -oral thrush: nystatin swish and swallow -RAPHAEL on CKD stage 2; baseline Cr is around 0.8; renal function normalized; d/c IVF, encourage oral hydration, avoid nephrotoxins, renally dose meds -cardiac diet as tolerated -GI ppx with PPI -DVT ppx with Lovenox -Dispo: home -Code status: FULL code Attestations Medical Necessity Statement*: Patient requires hospitalization for continued treatment of pneumonia, on dual IV antibiotic treatment, needs continued close monitoring of respiratory status. Time Spent in Patient Care: 16 - 35 minutes (>than 50% of time spent in counselling and/or direct pt care on unit). Coding Level of Care Code Acute Acetylene Cutter for [facility] Fwd Exam Comprehensive Diagnoses Pneumonia J18.9 Laterality: left Lung location: lower lobe of lung Pneumonia type: due to unspecified organism COPD (chronic obstructive pulmonary disease) J44.1 COPD type: COPD with acute exacerbation Hypertension I10 Hypertension type: essential hypertension Coronary artery disease I25.10 Associated angina: angina presence unspecified Coronary Disease-Associated Artery/Lesion type: [place] artery [place] vs. transplanted heart: [place] heart Hyperlipidemia E78.5 Hyperlipidemia type: unspecified Thrombocytosis D47.3 Obesity E66.09; Z68.31 Body mass index: BMI 31.0-31.9 Obesity classification: adult class 1 (BMI 30 - 34.9) Obesity type: due to excess calories Serious obesity comorbidity presence: with serious comorbidity
[2019-10-23] MEDS: levofloxacin-dextrose 5 % 750 MG/150 ML PREMIX 100 MG IV (18:22)
[2019-10-24] VITALS (9 sets, daily range): BP systolic 122–161; BP diastolic 82–100; PULSE 84–92; RESP 16–18; TEMP 36.3–36.9; O2SAT 90–153
[2019-10-24 05:28] LABS: Basophils # 0.1 10^3/uL (0.0-0.1); Basophils % 0.4 %; Eosinophils # 0.2 10^3/uL (0.0-0.8); Eosinophils % 0.8 %; Hematocrit 38.5 % (42.0-52.0); Hemoglobin 12.4 g/dL (11.7-16.6); Lymphocytes # 2.8 10^3/uL (0.8-4.8); Lymphocytes % 13.8 %; Mean Corpuscular HGB Conc 32.2 g/dL (30.0-36.0); Mean Corpuscular Volume 96.3 fL (80-94); Mean Platelet Volume 8.9 fL (7.4-10.4); Monocytes # 1.1 10^3/uL (0.2-0.9); Monocytes % 5.7 %; Neutrophils # 13.79 10^3/uL (1.8-7.7); Neutrophils % 68.9 %; Nucleated Red Blood Cells % 0 %; Platelet Count 1181 10^3/cmm (130-400); Red Cell Distribution Width 14.2 % (12.1-15.1)
[2019-10-24 06:12] LABS: Slide Review Slide Review Perform
[2019-10-24] MEDS: nicotine 14 mg Patch 1 PATCH TRANSDERMA (08:47)
[2019-10-24] MEDS: losartan 50 mg Tablet 100 MG PO (08:48)
[2019-10-24] MEDS: aspirin 81 mg Chew Tablet PO (08:48)
[2019-10-24] MEDS: clopidogrel 75 mg Tablet PO (08:49)
[2019-10-24] MEDS: pantoprazole DR 40 mg Tablet PO (08:49)
[2019-10-24] MEDS: duloxetine 60 mg Capsule PO (08:49)
[2019-10-24] MEDS: amlodipine 10 mg Tablet PO (08:49)
[2019-10-24] MEDS: nystatin 100,000 unit/mL UDC 5 mL 500000 UNIT PO ×4 (08:49→22:01)
--- NOTE | 2019-10-24 10:27 | P.PN_ITS ---
Subjective Subjective: Interval history: Leukocytosis continues to decrease, afebrile, intermittently hypotensive, remains on supplemental oxygen support, currently on 2 L nasal cannula, thrombocytosis persists with platelet count of 1181 today. Looks much better today, in good spirits, has done well on room air throughout the afternoon, ambulating more easily, starting to have some expectoration with cough. Medications: Reviewed: Yes Medication Review Details: Current Medications Generic Name Dose Route Start Last Admin Trade Name Freq PRN Reason Stop Dose Admin Acetaminophen 650 mg 10/21/19 16:48 10/23/19 06:16 Tylenol PO 650 mg Q6H PRN Administration Mild/Mod Pain Or Temp >/= 101 Albuterol/Ipratrop ium 3 ml 10/21/19 17:38 10/23/19 07:37 Duoneb INHALATION 3 ml Q6H PRN Administration SHORTNESS OF LUCY TH Amlodipine Besylat e 10 mg 10/22/19 09:00 10/24/19 08:49 Norvasc PO 10 mg DAILY JAVON Administration Aspirin 81 mg 10/22/19 09:00 10/24/19 08:48 Aspirin Chewable PO 81 mg DAILY JAVON Administration Clopidogrel Bisulf ate 75 mg 10/22/19 09:00 10/24/19 08:49 Plavix PO 75 mg DAILY JAVON Administration Duloxetine HCl 60 mg 10/22/19 09:00 10/24/19 08:49 Cymbalta PO 60 mg DAILY JAVON Administration Enoxaparin Sodium 40 mg 10/21/19 17:30 10/23/19 18:27 Lovenox SUBCUT Not Given Q24H JAVON Hydralazine HCl 10 mg 10/22/19 03:40 10/23/19 04:19 Apresoline IVP 10 mg Q4H PRN Administration HYPERTENSION Levofloxacin/Dextr ose 750 mg in 150 mls @ 100 mls/hr 10/21/19 18:00 10/23/19 18:22 Levaquin-D5w IV 100 mls/hr Q24H JAVON Administration Protocol Vancomycin HCl 1,2 50 mg/ 250 mls @ 166.667 mls/hr 10/24/19 05:00 10/24/19 04:36 Sodium Chloride IV 166.7 mls/hr Q12H JAVON Administration Losartan Potassium 100 mg 10/22/19 09:00 10/24/19 08:48 Cozaar PO 100 mg DAILY JAVON Administration Morphine Sulfate 2 mg 10/21/19 20:12 10/22/19 20:39 Morphine IVP 2 mg Q4H PRN Administration SEVERE PAIN Nicotine 1 patch 10/21/19 20:15 10/24/19 08:47 Nicoderm 14 Mg P atch TRANSDERMA 1 patch DAILY JAVON Administration Nystatin 500,000 unit 10/21/19 21:00 10/24/19 08:49 Nystatin PO 500,000 unit QID JAVON Administration Pantoprazole Sodiu m 40 mg 10/22/19 09:00 10/24/19 08:49 Protonix PO 40 mg DAILY JAVON Administration Vitals/I&O/Wt Last Vital Signs Temp 98.2 F 10/24/19 07:33 Pulse 92 10/24/19 08:22 Resp 17 10/24/19 08:22 BP 161/100 10/24/19 08:48 Pulse Ox 92 10/24/19 08:22 10/23/19 10/24/19 10/24/19 22:59 06:59 14:59 Intake Total 360 / 930 240 / 1170 300 / 300 Output Total 650 / 1010 400 / 1410 250 / 250 Balance -290 / -80 -160 / -240 50 / 50 Weight last 48 hrs Weight 105.715 kg Weight 105.233 kg Physical Exam Const: COMMON NORMALS: no acute distress, patient oriented x3 and alert GENERAL APPEARANCE: cooperative and comfortable; not ill appearing ORIENTATION/CONSCIOUSNESS: Yes awake HENMT: COMMON NORMALS: normocephalic, atraumatic, hearing grossly normal bilaterally and moist oral mucous membranes HEAD & SCALP: normocephalic and atraumatic Eye: COMMON NORMALS: Equal, round and reactive pupils present, EOMs intact bilaterally and conjunctivae normal CONJUNCTIVA: Yes conjunctivae normal PUPIL: Yes Equal, round and reactive pupils present Neck/C-Spine: COMMON NORMALS: full ROM GENERAL: Yes normal visual inspection and Yes trachea midline Resp: COMMON NORMALS: normal respiratory effort, No retractions, No use of accessory muscles and clear to auscultation bilaterally EFFORT & INSPECTION: Yes able to speak in complete sentences, Yes symmetric chest movement and No tachypneic AUSCULTATION: clear to auscultation bilaterally and rhonchi left lower OTHER: -on RA -improved air entry Cardio: COMMON NORMALS: regular rate, regular rhythm, S1 normal heart sound present, S2 normal heart sound present and No murmurs present (Cardio) RATE: regular rate RHYTHM: regular rhythm HEART SOUNDS: S1 normal heart sound present and S2 normal heart sound present GI: COMMON NORMALS: Normal to inspection, nondistended, normoactive bowel sounds present, Soft to palpation and non-tender INSPECTION: Yes central obesity PALPATION: Yes Soft to palpation Extremity: COMMON NORMALS: normal to inspection, full ROM and no clubbing, cyanosis or edema; negative for no pedal edema Neuro: COMMON NORMALS: patient oriented x3, moves all extremities, no focal motor deficits and no sensory deficits noted SENSORIUM/ORIENTATION: Yes alert Psych: COMMON NORMALS: mental status grossly normal, Normal thought process present, cooperative, normal affect and speech normal SPEECH: Yes normal speech THOUGHT PROCESS: Normal thought process present Skin: COMMON NORMALS: no rashes or lesions noted, no jaundice, no petechiae and no mottling GENERAL SKIN EXAM: no rashes or lesions noted Data : 10/24/19 04:40 10/22/19 04:25 Micro: Microbiology 10/22/19 15:40 MRSA Culture - Final Nose A&P Assessment and plan (1) Pneumonia: -Noted evidence of dense consolidation involving left lower lobe with some hilar lymphadenopathy and inflammatory changes. Noted slight wedge-shaped area of consolidation at right lung base that may be indicative of infection as well. PE ruled out, noted D-dimer elevation -will need follow up imaging following treatment of infection -Mild hypoxia prior to arrival, currently on 2 L nasal cannula, continue to monitor respiratory status and provide supplemental oxygen as needed -decreasing though still significant leukocytosis (WBC-20), afebrile, lactic acid normalized (2.2), evidence of hypoxia on ABG -Screened for COVID-19: negative x 2 -blood cx: prelim negative -negative bacterial antigens, Legionella, MRSA -had been on oral Levaquin; on IV Levaquin and Vancomycin. Has allergy to PCN so hold off on Zosyn. With improvement, will d/c Vanc -continue to monitor vital signs Status: Acute Qualifiers: Laterality: left Lung location: lower lobe of lung Pneumonia type: due to unspecified organism Qualified Code(s): J18.9 - Pneumonia, unspecified organism (2) COPD (chronic obstructive pulmonary disease): -mild acute exacerbation with need for supplemental oxygen support currently -Duonebs, d/c steroids due to significant hypertension, leukocytosis -imaging noted Status: Acute Qualifiers: COPD type: COPD with acute exacerbation Qualified Code(s): J44.1 - Chronic obstructive pulmonary disease with (acute) exacerbation (3) Hypertension: -BP improved; continue to monitor vital signs -continue oral antihypertensives; hydralazine PRN Status: Chronic Qualifiers: Hypertension type: essential hypertension Qualified Code(s): I10 - Essential (primary) hypertension (4) Coronary artery disease: -s/p CABG x 2 -continue ASA, plavix Status: Chronic Qualifiers: Associated angina: angina presence unspecified Coronary Disease- Associated Artery/Lesion type: [place] artery [place] vs. transplanted heart: [place] heart Qualified Code(s): I25.10 - Atherosclerotic heart disease of [place] coronary artery without angina pectoris (5) Hyperlipidemia: Status: Chronic Qualifiers: Hyperlipidemia type: unspecified Qualified Code(s): E78.5 - Hype rlipidemia, unspecified (6) Thrombocytosis: -has known hx of thrombocytosis, increased platelet count likely due to acute infection -peripheral smear findings discussed with Dr. Gtz; will likely need repeat evaluation following treatment and resolution of infection. IgG, IgM wnl, IgA high normal Status: Acute (7) Obesity: -BMI-32 kg/m2 Status: Chronic Qualifiers: Body mass index: BMI 31.0-31.9 Obesity classification: adult class 1 (BMI 30 - 34.9) Obesity type: due to excess calories Serious obesity comorbidity presence: with serious comorbidity Qualified Code(s): E66.09 - Other obesity due to excess calories; Z68.31 - Body mass index (BMI) 31.0-31.9, adult Additional A&P Information -Chronic smoker; 1 PPD; nicotine replacement therapy -oral thrush: nystatin swish and swallow -RAPHAEL on CKD stage 2; baseline Cr is around 0.8; renal function normalized; d/c IVF, encourage oral hydration, avoid nephrotoxins, renally dose meds -cardiac diet as tolerated -GI ppx with PPI -DVT ppx with Lovenox -Dispo: home -Code status: FULL code Attestations Medical Necessity Statement*: Patient requires hospitalization for continued treatment of pneumonia, on IV antibiotic treatment, noted continued leukocytosis and thrombocytosis. Time Spent in Patient Care: 16 - 35 minutes (>than 50% of time spent in counselling and/or direct pt care on unit) . Coding Level of Care Code Acute Bulldozer/Loader/Compactor/Scraper for [facility] Fwd Exam Comprehensive Diagnoses Pneumonia J18.9 Laterality: left Lung location: lower lobe of lung Pneumonia type: due to unspecified organism COPD (chronic obstructive pulmonary disease) J44.1 COPD type: COPD with acute exacerbation Hypertension I10 Hypertension type: essential hypertension Coronary artery disease I25.10 Associated angina: angina presence unspecified Coronary Disease-Associated Artery/Lesion type: [place] artery [place] vs. transplanted heart: [place] heart Hyperlipidemia E78.5 Hyperlipidemia type: unspecified Thrombocytosis D47.3 Obesity E66.09; Z68.31 Body mass index: BMI 31.0-31.9 Obesity classification: adult class 1 (BMI 30 - 34.9) Obesity type: due to excess calories Serious obesity comorbidity presence: with serious comorbidity
--- NOTE | 2019-10-24 10:57 | PC.SOCIAL ---
IMM Update Pg. 2 of IMM updated and reviewed with patient who verbalized understanding. Copy provided.
[2019-10-24] MEDS: levofloxacin-dextrose 5 % 750 MG/150 ML PREMIX 100 MG IV (18:06)
[2019-10-24] MEDS: acetaminophen 325 mg Tablet 650 MG PO (18:50)
[2019-10-25] VITALS (8 sets, daily range): BP systolic 99–126; BP diastolic 52–83; PULSE 84–103; RESP 16–20; TEMP 36.4–36.8; O2SAT 90–93
[2019-10-25] MEDS: morphine 4 mg/mL SDV 1 mL 2 MG IVP (05:31)
[2019-10-25 05:40] LABS: Hematocrit 40.6 % (42.0-52.0); Mean Corpuscular Volume 96.7 fL (80-94); Mean Platelet Volume 8.7 fL (7.4-10.4); Platelet Count 1397 10^3/cmm (130-400); Red Cell Distribution Width 13.9 % (12.1-15.1)
[2019-10-25 05:56] LABS: Anion Gap 12.1 (5-19); Blood Urea Nitrogen 15 mg/dL (6-20); Calcium 8.6 mg/dL (8.5-10.5); Carbon Dioxide 27 mmol/L (22-29); Chloride 99 mmol/L (98-107); Glomerular Filtration Rate 99.6 mL/min (90-130); Glucose 103 mg/dL (65-115); Osmolality Calculated 275 mOsm/kg (285-295); Potassium 4.1 mmol/L (3.5-5.1); Sodium 134 mmol/L (136-145)
[2019-10-25 05:59] LABS: Ferritin 662 ng/mL (30-400); Iron 61 ug/dL (59-158); Percent Saturation 28.3 % (20-50); Total Iron Binding Capacity 215 mcg/dl; Unsaturated Iron Binding 154 ug/dL (112-347)
[2019-10-25 06:08] LABS: Slide Review Slide Review Perform; Total Cells Counted 100 (0-100)
[2019-10-25 06:09] LABS: Absolute Neutrophil 12.7 10^3/cmm (1.4-6.5); Absolute Segmented Neutrophil 11.2 10/cmm (1.6-7.1); Band Neutrophils Absolute 1.5 10^3/cmm (0.0-1.2); Lymphocytes 22 %; Monocytes Absolute 1.3 10^3/cmm (0.1-0.6); Platelet Estimate Increased (Normal); Segmented Neutrophils 59 %
[2019-10-25 06:10] LABS: Poikilocytosis Trace; Polychromasia Trace
[2019-10-25] MEDS: nicotine 14 mg Patch 1 PATCH TRANSDERMA (09:23)
[2019-10-25] MEDS: nystatin 100,000 unit/mL UDC 5 mL 500000 UNIT PO ×2 (09:23→12:18)
[2019-10-25] MEDS: losartan 50 mg Tablet 100 MG PO (09:23)
[2019-10-25] MEDS: pantoprazole DR 40 mg Tablet PO (09:24)
[2019-10-25] MEDS: amlodipine 10 mg Tablet PO (09:24)
[2019-10-25] MEDS: aspirin 81 mg Chew Tablet PO (09:24)
[2019-10-25] MEDS: duloxetine 60 mg Capsule PO (09:24)
[2019-10-25] MEDS: clopidogrel 75 mg Tablet PO (09:24)
--- NOTE | 2019-10-25 11:38 | PM.DCS ---
Discharge Providers Date of Admission: 10/21/19 14:58 Date of Discharge: October 25, 2019 Attending Provider at Admission: Didi Trinidad MD Attending Provider at Discharge: Didi Trinidad MD Consults: None Primary Care Provider: Hung Carmichael MD Diagnoses at Discharge Discharge Diagnosis (1) Pneumonia: Status: Acute Problem details: -Noted evidence of dense consolidation involving left lower lobe with some hilar lymphadenopathy and inflammatory changes. Noted slight wedge-shaped area of consolidation at right lung base that may be indicative of infection as well. PE ruled out, noted D-dimer elevation -will need follow up imaging following treatment of infection -Mild hypoxia prior to arrival and required supplemental oxygen support, now on RA -decreasing though still significant leukocytosis (WBC-20), afebrile, lactic acid normalized (2.2), evidence of hypoxia on ABG -Screened for COVID-19: negative x 2 -blood cx: negative -negative bacterial antigens, Legionella, MRSA -had been on oral Levaquin; on IV Levaquin and Vancomycin. Has allergy to PCN so hold off on Zosyn. With improvement, off Vanc -continue to monitor vital signs Qualifiers: Laterality: left Lung location: lower lobe of lung Pneumonia type: due to unspecified organism Qualified Code(s): J18.9 - Pneumonia, unspecified organism (2) COPD (chronic obstructive pulmonary disease): Status: Acute Problem details: -mild acute exacerbation with need for supplemental oxygen support currently -Duonebs, d/c steroids due to significant hypertension, leukocytosis -imaging noted Qualifiers: COPD type: COPD with acute exacerbation Qualified Code(s): J44.1 - Chronic obstructive pulmonary disease with (acute) exacerbation (3) Hypertension: Status: Chronic Problem details: -vital signs stable -continue oral antihypertensives; hydralazine PRN Qualifiers: Hypertension type: essential hypertension Qualified Code(s): I10 - Essential (primary) hypertension (4) Coronary artery disease: Status: Chronic Problem details: -s/p CABG x 2 -continue ASA, plavix Qualifiers: Associated angina: angina presence unspecified Coronary Disease-Associated Artery/Lesion type: [place] artery [place] vs. transplanted heart: [place] heart Qualified Code(s): I25.10 - Atherosclerotic heart disease of [place] coronary artery without angina pectoris (5) Hyperlipidemia: Status: Chronic Qualifiers: Hyperlipidemia type: unspecified Qualified Code(s): E78.5 - Hyperlipidemia, unspecified (6) Thrombocytosis: Status: Acute Problem details: -has known hx of thrombocytosis, increased platelet count likely due to acute infection -peripheral smear findings discussed with Dr. Gtz; will likely need repeat evaluation following treatment and resolution of infection. IgG, IgM wnl, IgA high normal (7) Obesity: Status: Chronic Problem details: -BMI-32 kg/m2 Qualifiers: Body mass index: BMI 31.0-31.9 Obesity classification: adult class 1 (BMI 30 - 34.9) Obesity type: due to excess calories Serious obesity comorbidity presence: with serious comorbidity Qualified Code(s): E66.09 - Other obesity due to excess calories; Z68.31 - Body mass index (BMI) 31.0-31.9, adult Other Information Additional DC diagnoses/information: -Chronic smoker; 1 PPD; nicotine replacement therapy -oral thrush: nystatin swish and swallow; resolved -RAPHAEL on CKD stage 2; baseline Cr is around 0.8; renal function normalized; d/c IVF, encourage oral hydration, avoid nephrotoxins, renally dose meds Reason for Visit Reason for Visit: SOB Hospital Course Hospital Course: Patient was admitted to the medical surgical floor following findings consistent with pneumonia on imaging. He was noted to have significant leukocytosis with white count greater than 30 and significant platelet count as well. He was started on IV antibiotic treatment which included Levaquin and vancomycin. Blood cultures were done which are negative, he was screened for COVID-19 which was negative as well. Bacterial antigens, Legionella, MRSA testing has been negative also. Leukocytosis has improved with treatment of pneumonia though white count is still quite high. Due to irregularities noted on CBC he had peripheral smear done which per discussion with pathology may correlate with infection but will need reevaluation following resolution of infection. Due to extent of consolidation involving left lower lobe repeat imaging is recommended by radiology following treatment to determine resolution. Have discussed importance of repeat imaging as well as reevaluation for noted thrombocytosis and leukocytosis particularly in light of patient's symptoms of ongoing fatigue, weight loss, night sweats which prompted consideration of possible malignancy. May even need evaluation by hematology/oncology. He initially required some supplemental oxygen support but has since been weaned down to room air. Home oxygen evaluation was done prior to discharge to verify if need for oxygen support with exertion. He will need close follow up with primary care provider within 1 week. He is counseled on need for smoking cessation, and need to seek medical attention immediately should symptoms worsen or recur, need to complete antibiotic course as prescribed. Discharge Summary: -Patient to follow up with Dr. Carmichael within 1 week -Patient to have follow up imaging (CT chest) once treatment completed -Patient to have re-evaluation of leukocytosis and thrombocytosis once infection treated. Physical Exam Const: COMMON NORMALS: no acute distress, patient oriented x3 and alert GENERAL APPEARANCE: cooperative and comfortable; not ill appearing ORIENTATION/CONSCIOUSNESS: Yes awake OTHER: -ill appearing (less so), fatigued HENMT: COMMON NORMALS: normocephalic, atraumatic, hearing grossly normal bilaterally and moist oral mucous membranes HEAD & SCALP: normocephalic and atraumatic OTHER: -Previously noted oral lesions resolved Eye: COMMON NORMALS: Equal, round and reactive pupils present, EOMs intact bilaterally and conjunctivae normal CONJUNCTIVA: Yes conjunctivae normal PUPIL: Yes Equal, round and reactive pupils present Neck/C-Spine: COMMON NORMALS: full ROM GENERAL: Yes normal visual inspection and Yes trachea midline Resp: COMMON NORMALS: normal respiratory effort, No retractions, No use of accessory muscles and clear to auscultation bilaterally EFFORT & INSPECTION: Yes able to speak in complete sentences, Yes symmetric chest movement and No tachypneic AUSCULTATION: clear to auscultation bilaterally and rhonchi left lower OTHER: -on RA -improved air entry Cardio: COMMON NORMALS: regular rate, regular rhythm, S1 normal heart sound present, S2 normal heart sound present and No murmurs present (Cardio) RATE: regular rate RHYTHM: regular rhythm HEART SOUNDS: S1 normal heart sound present and S2 normal heart sound present GI: COMMON NORMALS: Normal to inspection, nondistended, normoactive bowel sounds present, Soft to palpation and non-tender INSPECTION: Yes central obesity PALPATION: Yes Soft to palpation Extremity: COMMON NORMALS: normal to inspection, full ROM and no clubbing, cyanosis or edema; negative for no pedal edema Neuro: COMMON NORMALS: patient oriented x3, moves all extremities, no focal motor deficits and no sensory deficits noted SENSORIUM/ORIENTATION: Yes alert Psych: COMMON NORMALS: mental status grossly normal, Normal thought process present, cooperative, normal affect and speech normal SPEECH: Yes normal speech THOUGHT PROCESS: Normal thought process present Skin: COMMON NORMALS: no rashes or lesions noted, no jaundice, no petechiae and no mottling GENERAL SKIN EXAM: no rashes or lesions noted Discharge Data Data Completed and Pending: Completed Studies During Hospitalization Category Date Time Status CT angio chest PE protcl [id number] Stat Cat Scan 10/21/19 12:19 Completed XR chest 1V sujata ble [id number] Stat Exams 10/21/19 11:41 Completed Pending at discharge Category Date Time Status Blood Culture Sta t Lab 10/21/19 12:20 Results Labs from last 24 hours 10/25/19 10/25/19 10/25/19 05:02 05:02 05:02 WBC 19.0 H RBC 4.20 Hgb 13.0 Hct 40.6 L MCV 96.7 H MCH 31.0 MCHC 32.0 RDW 13.9 Plt Count 1397 H MPV 8.7 Lymph % (Auto) Not Reportable [place] % (Auto) Not Reportable Lymph # (Auto) Not Reportable [place] # (Auto) Not Reportable Total Counted 100 Absolute Neutrophi ls 12.7 H Segmented Neutroph ils 59 Abs Segm Neuts (Ma n) 11.2 H Band Neutrophils 8.0 Abs Band Neuts (Ma n) 1.5 H Lymphocytes (Manua [place]) 22 Monocytes (Manual) 7.0 Absolute Monocytes 1.3 H Metamyelocytes 2.0 Myelocytes 2.0 Platelet Estimate Increased Polychromasia Trace Poikilocytosis Trace Sodium 134 L Potassium 4.1 Chloride 99 Carbon Dioxide 27 Anion Gap 12.1 BUN 15 Creatinine 0.8 GFR Calculation 99.6 Glucose 103 Calculated Osmolal ity 275 L Calcium 8.6 Iron 61 TIBC 215 % Saturation 28.3 Unsat Iron Binding 154 Ferritin 662 H Vitals: Last Vital Signs Temp 98.1 F 10/25/19 08:00 Pulse 103 H 10/25/19 09:29 Resp 18 10/25/19 09:29 BP 123/75 10/25/19 08:00 Pulse Ox 93 10/25/19 09:29 Discharge Plan Discharge Patient Disposition: Home Condition: Stable Prescriptions: New Adult Low Dose Aspirin 81 mg tablet,delayed release (DR/EC) 81 mg PO DAILY 30 Days Qty: 30 RF: 0 levofloxacin 750 mg tablet 750 mg PO DAILY 10 Days Qty: 10 RF: 0 Continued clopidogrel 75 mg tablet 75 mg PO DAILY 30 Days Qty: 30 RF: 0 albuterol sulfate 2.5 mg /3 mL (0.083 %) solution for nebulization 2.5 mg inhalation Q6H PRN (Reason: UNKNOWN) RF: 0 amlodipine 10 mg tablet 10 mg PO DAILY RF: 0 albuterol sulfate 90 mcg/actuation HFA aerosol inhaler 1 - 2 puff INHALATION Q4H PRN (Reason: Shortness Of Breath) RF: 0 losartan 100 mg tablet 100 mg PO DAILY RF: 0 duloxetine 60 mg capsule,delayed release(DR/EC) 60 mg PO DAILY RF: 0 Trelegy Ellipta 100-62.5-25 mcg blister with device 1 ea INHALATION DAILY RF: 0 Discontinued aspirin [Aspir-81] 81 mg Tablet,Delayed Release (Dr/Ec) 81 mg PO DAILY RF: 0 levofloxacin [Levaquin] 750 mg tablet 750 mg PO DAILY 7 Days Qty: 7 RF: 0 Discharge Orders: Discharge Order (Routine); Ordered 10/25/19 Ordered By: Didi Trinidad Referrals: Hung Carmichael MD [Primary Care Provider] - 4-7 days (Patient treated for pneumonia, noted to have significant leukocytosis and thrombocytosis. Will need repeat imaging once antibiotic course completed as well as repeat re-evaluation of CBC and potentially Heme/Onc evaluation as well. ) Discharge Diet: Cardiac Discharge Activity: Increase activity as tolerated Patient Instructions: Aspirin (By mouth), Levofloxacin (By mouth) Activity Restrictions/Additional Instructions: -Please follow up with primary care physician within 1 week. You will need follow up imaging to determine resolution of infection as well as repeat evaluation for noted abnormalities on labs (increased WBC and platelet count). Discharge Attestations Time Spent in Discharge Care*: less than 30 min Specific Discharge Activities: Specific discharge activities: educating patient, discussing with nurse case manager/social workers/dc planners, documenting/other paperwork and evaluating patient/reviewing data Time Spent in Smoking Cessation: Time spent discussing smoking cessation with patient: 3 to 10 minutes Status at Discharge: Cognitive status at discharge: cognitively intact, Behavioral status at discharge: cooperative and independent in ADL's, Functional status at discharge: independent ambulation Overall status at discharge: patient is progressing back to baseline Quality Metrics Clinical Quality Measures During this hospital stay, did patient experience: None Coding Level of Care Code Acute [employer] [facility] Fwd Exam Comprehensive Diagnoses Pneumonia J18.9 Laterality: left Lung location: lower lobe of lung Pneumonia type: due to unspecified organism COPD (chronic obstructive pulmonary disease) J44.1 COPD type: COPD with acute exacerbation Hypertension I10 Hypertension type: essential hypertension Coronary artery disease I25.10 Associated angina: angina presence unspecified Coronary Disease-Associated Artery/Lesion type: [place] artery [place] vs. transplanted heart: [place] heart Hyperlipidemia E78.5 Hyperlipidemia type: unspecified Thrombocytosis D47.3 Obesity E66.09; Z68.31 Body mass index: BMI 31.0-31.9 Obesity classification: adult class 1 (BMI 30 - 34.9) Obesity type: due to excess calories Serious obesity comorbidity presence: with serious comorbidity
== END 2019-10-25 13:31 | disposition home or self-care (01) | DRG 194 ==
LOC: ER 15:15 → MEDSURG 15:53
PROVIDERS: Emergency Medicine; Admitting Provider Family Medicine; PCP Family Medicine; Visit Provider Family Medicine
DX: J18.9 Pneumonia, unspecified organism (principal); J44.0 Chronic obstructive pulmonary disease with (acute) lower respiratory infection; N17.9 Acute kidney failure, unspecified; B37.0 Candidal stomatitis; I25.10 Atherosclerotic heart disease of native coronary artery without angina pectoris; E78.5 Hyperlipidemia, unspecified; D47.3 Essential (hemorrhagic) thrombocythemia; Z95.1 Presence of aortocoronary bypass graft; E66.09 Other obesity due to excess calories; Z68.31 Body mass index [BMI] 31.0-31.9, adult; N18.2 Chronic kidney disease, stage 2 (mild); E11.22 Type 2 diabetes mellitus with diabetic chronic kidney disease; F17.210 Nicotine dependence, cigarettes, uncomplicated; I12.9 Hypertensive chronic kidney disease with stage 1 through stage 4 chronic kidney disease, or unspecified chronic kidney disease; Z79.82 Long term (current) use of aspirin; Z79.02 Long term (current) use of antithrombotics/antiplatelets
CPT/HCPCS: 12345; 36415; 36600; 71045; 71275; 80048; 80051; 80053; 80202; 80500; 81003; 82728; 82784; 82810; 83540; 83550; 83605; 83735; 83880; 83986; 84484; 85007; 85025; 85378; 85610; 86403; 87040; 87426; 87449; 87641; 93005; 94640; 96375; 99283; J0360; J0743; J1956; J2270; J2930; J3370; J7030; J7050; Q9967

== ENCOUNTER → 2021-03-17 15:46 | Outpatient (BNVA) | payer MEDICARE, SELFPAY | PROVIDERS: PCP Family Medicine; Visit Provider Internal Medicine Cardiovascular Disease | DX: R06.02 Shortness of breath (principal); I50.33 Acute on chronic diastolic (congestive) heart failure; I25.10 Atherosclerotic heart disease of native coronary artery without angina pectoris | CPT/HCPCS: 80048; 83880 ==

== ENCOUNTER → 2021-08-15 08:11 | Outpatient (BNVA) | payer MEDICARE, SELFPAY | PROVIDERS: PCP Family Medicine; Visit Provider Internal Medicine Critical Care Medicine | DX: J44.1 Chronic obstructive pulmonary disease with (acute) exacerbation (principal); J96.11 Chronic respiratory failure with hypoxia; Z87.09 Personal history of other diseases of the respiratory system; F17.210 Nicotine dependence, cigarettes, uncomplicated; J44.9 Chronic obstructive pulmonary disease, unspecified; I10 Essential (primary) hypertension; E78.5 Hyperlipidemia, unspecified | CPT/HCPCS: 99204 ==